=== PATIENT | female | born 1925 | race Caucasian/White ===

== ENCOUNTER 2016-06-06 10:52 | Inpatient (IN) | payer OTHER ==
[~2016-06-06] VITALS: Ht 162.6 cm; Wt 65.1 kg
[2016-06-06] MEDS ORDERED: LOVASTATIN20 M1 PO (10:59)
[2016-06-06] MEDS ORDERED: AMLODIPINE BESYL5 M1 PO (10:59)
[2016-06-06] MEDS ORDERED: LISINOPRIL10 M1 PO (10:59)
[2016-06-06] MEDS ORDERED: CELEBREX200 M1 PO (10:59)
[2016-06-06] MEDS ORDERED: FUROSEMIDE20 M1 PO (10:59)
[2016-06-06] MEDS ORDERED: VITAMIN B-121000 MC3 PO (11:00)
[2016-06-06] MEDS ORDERED: ASPIRIN EC81 M1 PO (11:00)
[2016-06-06] MEDS ORDERED: FAMOTIDINE20 M1 PO (11:00)
[2016-06-06] MEDS ORDERED: FERROUS SULFAT325 M3 PO (11:00)
[2016-06-06] MEDS ORDERED: FISH OIL 1,0001 EACH PO (11:01)
[2016-06-06] MEDS ORDERED: OSTEO BI-FLEX1 EACH PO (11:01)
--- NOTE | 2016-06-06 11:01 | ED SYNCOPE COMPLAINT ---
History of Present Illness General Chief Complaint: Syncope and Near-Syncope Stated Complaint: BIBA FOR SYNOPE EPISODE Source: patient, EMS Exam Limitations: no limitations Vital Signs & Intake/Output Vital Signs & Intake/Output Vital Signs Date Time Temp Pulse Resp B/P Pulse O2 O2 Flow FiO2 Ox Delivery Rate 06/07 1039 98.7 64 18 84/50 06/07 0936 98.7 64 18 84/50 95 Room Air 06/07 0313 94/50 06/06 2333 97.7 78 18 80/40 98 Room Air 06/06 2134 Room Air 06/06 2128 76 80/40 06/06 1946 95 Room Air 06/06 1849 98.6 59 16 104/48 95 Room Air 06/06 1629 98.6 72 18 110/57 100 Room Air 06/06 1556 92/40 06/06 1552 96.8 66 18 92/54 99 Room Air 06/06 1444 96.9 81 16 106/57 99 Room Air ED Intake and Output 06/07 0000 06/06 1200 Intake Total 910 Output Total 400 Balance 510 Intake, IV 310 Intake, Oral 600 Output, Urine 400 Patient 142 lb 142 lb Weight Allergies Coded Allergies: NO KNOWN ALLERGIES (01/06/11) Reconcile Medications Acetaminophen (Tylenol Extra Strength) 500 MG TABLET 1 TAB PO TID PRN PAIN ( Reported) Amlodipine Besylate 5 MG TABLET 1 TAB PO DAILY HEART (Reported) Aspirin (Ecotrin*) 81 MG TABLET.DR 1 TAB PO DAILY HEART HEALTH (Reported) Calcium Carb/Vitamin D3/Vit K1 (Viactiv Soft Chew Tablet) 500 MG CALCIUM-500 UNIT-40 MCG TAB.CHEW 1 TAB PO DAILY SUPPLEMENT (Reported) Celecoxib (Celebrex) 200 MG CAPSULE 1 CAP PO DAILY PAIN (Reported) Cyanocobalamin (Vitamin B-12) 1,000 MCG TABLET 1 TAB PO DAILY SUPPLEMENT ( Reported) Famotidine 20 MG TABLET 1 TAB PO DAILY GI (Reported) Ferrous Sulfate 325 MG (65 MG IRON) TABLET 1 TAB PO DAILY SUPPLEMENT ( Reported) Furosemide 20 MG TABLET 1 TAB PO DAILY WATER PILL (Reported) Glucosamine HCl/Chondr Caldera A Na (Osteo Bi-Flex Caplet) 250 MG-200 MG TABLET 1 TAB PO DAILY SUPPLEMENT (Reported) Lisinopril 10 MG TABLET 1 TAB PO DAILY HEART (Reported) Lovastatin 20 MG TABLET 1 TAB PO DAILY CHOLESTEROL (Reported) [place]-3 Fatty Acids/Fish Oil (Fish Oil 1,000 MG Capsule) 340 MG-1,000 MG CAPSULE 1 CAP PO DAILY SUPPLEMENT (Reported) Triage Nurses Notes Reviewed? yes Timing: single episode today Precipitating Factors: WHILE SEATED ON TOILET Episode Description: SEE HPI Loss of Consciousness: brief (seconds) Associated Symptoms: weakness, NAUSEA HPI: This is an 89-year-old female with history of hypertension, high cholesterol who presents by EMS from home for chief complaint of syncopal episode. Patient states while having a bowel movement on the toilet she started to feel lightheaded and dizzy like she was going to pass out. She activated her [employer]. Then she became nauseous and was getting up to get her waste basket when she passed out. Patient states that she went to her knees she did not hit her head. EMS states that she was outside the house when they got there. Blood sugar was within normal limits. Denies any chest pain or shortness of breath. Denies any lightheadedness or dizziness at this time. History of syncope previously. 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 No known history of a murmur. Past History Travel History Traveled to [place] past 21 day No Medical History Any Pertinent Medical History? see below for history Cardiovascular: hypertension, hyperlipidemia Surgical History Surgical History: non-contributory Psychosocial History What is your primary language Niuean Tobacco Use: Never used ETOH Use: denies use Family History Hx Contributory? No Review of Systems Review of Systems Constitutional: Denies: chills, fever. EENTM: Reports: no symptoms. Respiratory: Denies: cough, short of breath, sputum production. Cardiovascular: Reports: syncope. Denies: chest pain, palpitations. GI: Denies: abdominal pain. Genitourinary: Denies: discharge, dysuria. Musculoskeletal: Reports: no symptoms. Skin: Reports: no symptoms. Neurological/Psychological: Denies: anxiety, ataxia. All Other Systems: Reviewed and Negative Physical Exam Physical Exam General Appearance: well developed/nourished, alert, awake, anxious, mild distress Head: atraumatic, normal appearance Eyes: Bilateral: normal appearance, PERRL, EOMI. Ears, Nose, Throat: normal pharynx, normal ENT inspection, hearing grossly normal Neck: normal inspection, supple, full range of motion, carotid bruit Respiratory: normal breath sounds, chest non-tender, no respiratory distress Cardiovascular: regular rate/rhythm, murmur (SYSTOLIC EJECTION MURMUR 3/6) Gastrointestinal: normal bowel sounds, soft, non-tender Extremities: normal inspection, normal capillary refill, normal range of motion, no edema Psychiatric: awake, alert, oriented x 3 Cranial Nerves: normal hearing, normal speech, PERRL Motor/Sensory: no motor/sensory deficits Skin: intact, normal color, warm/dry Core Measures ACS in differential dx? Yes CVA/TIA Diagnosis: No Severe Sepsis Present: No Septic Shock Present: No Progress Differential Diagnosis: AMI, aortic dissection, aortic valve, orthostatic syncope, other valvular disease, pulmonary embolus, sick sinus syndrome, TIA/CVA , AORTIC STENOSIS Plan of Care: Orders Procedure Date/time Status BASIC ELECTROLYTES PLUS BUN&CR 06/08 0500 Active BASIC ELECTROLYTES PLUS BUN&CR 06/07 1800 Active CBC WITHOUT DIFFERENTIAL 06/07 0600 Complete BASIC ELECTROLYTES PLUS BUN&CR 06/07 0600 Complete Evaluate Swallowing 06/07 UNK Complete RT: Evaluation 06/06 2134 Active Lab Add-on Test 06/06 2131 Active MISTAKE 06/06 2047 Active TROPONIN LEVEL 06/06 1999 Complete POTASSIUM-PLASMA 06/06 1999 Complete EKG 06/06 1999 Active Pathway - chart 06/06 1949 Active Teach/Educate 06/06 194 Active Nutritional Intake, Monitor 06/06 194 Active Isolation 06/06 194 Active Patient Care Conference 06/06 194 Active Activity/Ambulation 06/06 194 Active BASIC ELECTROLYTES PLUS BUN&CR 06/06 1600 Complete Code Status 06/06 1426 Active TRC EVALUATION (GEN) 06/06 1338 Complete OXYGEN SETUP (GEN) 06/06 1338 Active Pathway - chart 06/06 1338 Active House Staff 06/06 1338 Active Patient Data 06/06 1338 Active Code Status 06/06 1338 Complete MISTAKE 06/06 1333 Complete Add-on Test (ER Only) 06/06 1332 Active URINE LYTES, SPOT 06/06 1332 Complete URINALYSIS 06/06 1332 Complete Intake & Output 06/06 1256 Active THYROID STIMULATING HORMONE 06/06 1148 Complete PHOSPHORUS 06/06 1148 Complete MAGNESIUM 06/06 1148 Complete FREE T4 06/06 1148 Complete CORTISOL AM 06/06 1148 Complete SWALLOW EVALUATION 06/06 UNK Active THERAPIST ORDERS 06/06 UNK Complete DC OXYGEN 06/06 UNK Complete VTE Mechanical Prophylaxis 06/06 UNK Active Vital Signs 06/06 UNK Active MISTAKE 06/06 UNK Complete Telemetry/Wholesale Agronomist 06/06 UNK Active Intake & Output 06/06 UNK Active Hemoccult 06/06 UNK Active ECHOCARDIOGRAM 06/06 UNK Active Current Medications Sig/Nany Start time Last Medication Dose Stop Time Status Admin Sodium Chloride 1,000 ML Q13H 06/08 0345 AC (Normal Saline 0.9%) Amlodipine Besylate 5 MG DAILY 06/07 1000 AC (Norvasc) Acetaminophen 650 MG QAM PRN 06/06 2000 AC (Tylenol) Laboratory Tests 06/07/16 0705: Anion Gap 11, Estimated GFR 30 L, BUN/Creatinine Ratio 36.3 H, CBC w Diff NO MAN DIFF REQ, RBC 3.31 L, MCV 88.3, MCH 29.0, RDW 16.4 H, MPV 7.2 L, Gran % 67.6, Lymphocytes % 24.8, Monocytes % 5.4, Eosinophils % 2.4, Basophils % 0.3, Absolute Granulocytes 5.4, Absolute Lymphocytes 2.0, Absolute Monocytes 0.4, Absolute Eosinophils 0.2, Absolute Basophils 0, PUBS MCHC 32.8 L 06/06/16 2035: Plasma Potassium 4.6 H, Troponin I < 0.01 06/06/16 1643: Anion Gap 12, Estimated GFR 26 L, BUN/Creatinine Ratio 42.8 H 06/06/16 1530: Urine Color YEL, Urine Clarity CLEAR, Urine pH 6.0, Ur Specific [place] 1.015, Urine Protein NEG, Urine Ketones NEG, Urine Nitrite NEG, Urine Bilirubin NEG, Urine Urobilinogen 0.2, Ur Leukocyte Esterase NEG, Ur Microscopic EXAM NOT REQUIRED, Urine Hemoglobin NEG, Urine Glucose NEG 06/06/16 1530: Ref Lab Test Result Pending, Ur Random Creatinine 38.6, Ur Random Sodium 103 H, Ur Random Potassium 26.2, Fraction Sodium Excret 3.8 H POTASSIUM ELEVATED, NO ACUTE EKG CHANGES. IV INSULIN, DEXTROSE, CALIUM, KAYEXELATE ORDERED. D/W DR ZHU, ADMITTED TO TELEMETRY. WILL RECHECK POTASSIUM AT 4 PM. (SENTHIL SWANSON,SANDHYA) Diagnostic Imaging: Viewed by Me: Radiology Read. Discussed w/RAD: Radiology Read. CXR Impression: PATIENT: ELVIS SANTOS PRESENT AGE: 89 PATIENT ACCOUNT NO: [id number] : [birth year] LOCATION: [facility] ORDERING PHYSICIAN: SANDHYA NDIAYE MD SERVICE DATE: 06/06/16 EXAM TYPE: RAD - XRY-PORTABLE CHEST XRAY EXAMINATION: XR PORTABLE CHEST CLINICAL INFORMATION: Syncope. COMPARISON: None. TECHNIQUE: Portable view of the chest was obtained. FINDINGS: Lungs are symmetrically hypoexpanded and without edema or focal consolidation. There is no pleural effusion or pneumothorax. The cardiac silhouette is normal in size. There is atherosclerotic calcification of the thoracic aorta. A small opacity projecting over the right lateral lung base could represent minimal atelectasis or calcification within the anterior right fifth rib. Bones appear diffusely osteoporotic. 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 The left humeral head abuts the acromion, indicative of chronic massive rotator cuff tear at the left shoulder. IMPRESSION: No acute findings within the chest. No evidence of cardiomegaly or pulmonary edema. DICTATED BY: RACHEL STARK MD DATE/TIME DICTATED:06/06/161136 FURRIER DESIGNER:CAR DATE/TIME TRANSCRIBED:06/06/161136 CONFIDENTIAL, DO NOT COPY WITHOUT APPROPRIATE AUTHORIZATION. <Electronically signed in Other Vendor System> SIGNED BY: RACHEL STARK MD 06/06/16 1144 Initial ED EKG: NSR Rhythm Strip: normal sinus rhythm Departure Departure Disposition: STILL A PATIENT Condition: Stable Clinical Impression Primary Impression: Syncope Secondary Impressions: EMILIE (acute kidney injury), Hyperkalemia Referrals: MARIA JUÁREZ CNM Departure Forms: Customer Survey General Discharge Information Admission Note Spoke With: CECI ZHU MD Documentation of Exam: Documentation of any treatments & extenuating circumstances including Concerns Regarding Discharge (functional status, medication knowledge or non-compliance, living conditions, etc.) that warrant an admission rather than observation: [ nuclear monitoring technician, treatment for hyperkalemia, recheck potassium, echocardiogram to rule out aortic stenosis, serial EKG and troponin, consider renal consultation] Critical Care Note Critical Care Note Critical Care Time: 30-74 min
[2016-06-06] MEDS ORDERED: VIACTIV SOFT C1 EACH PO (11:02)
[2016-06-06] MEDS ORDERED: TYLENOL EXTRA500 M2 PO (11:02)
--- NOTE | 2016-06-06 11:03 | NUR ---
LAVERNE FROM HOME, STATES SHE FELT DIZZY, HAD A SYNCOPAL EPISODE WHILE HAVING A BM ON TOILET, DENIES HITTING HEAD, STATES SHE LOWERED HERSELF TO THE GROUND. DENIES CHEST PAIN, SOB OR HEADACHE. EVALUATED BY DR. NDIAYE.
--- NOTE | 2016-06-06 11:44 | RADIOLOGY REPORT ---
EXAMINATION: XR PORTABLE CHEST CLINICAL INFORMATION: Syncope. COMPARISON: None. TECHNIQUE: Portable view of the chest was obtained. FINDINGS: Lungs are symmetrically hypoexpanded and without edema or focal consolidation. There is no pleural effusion or pneumothorax. The cardiac silhouette is normal in size. There is atherosclerotic calcification of the thoracic aorta. A small opacity projecting over the right lateral lung base could represent minimal atelectasis or calcification within the anterior right fifth rib. Bones appear diffusely osteoporotic. 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 The left humeral head abuts the acromion, indicative of chronic massive rotator cuff tear at the left shoulder. IMPRESSION: No acute findings within the chest. No evidence of cardiomegaly or pulmonary edema.
--- NOTE | 2016-06-06 11:49 | NUR ---
BLOOD DRAWN AND SENT TO LAB. LAV,SST,BLUE
[2016-06-06 11:52] LABS: ABSOLUTE BASOPHIL COUNT 0 /CUMM (0.0-0.2); ABSOLUTE EOSINOPHIL COUNT 0.1 /CUMM (0.0-0.7); ABSOLUTE GRANULOCYTE CT 9.4 /CUMM (1.4-6.5); ABSOLUTE LYMPH COUNT 0.9 /CUMM (1.2-3.4); ABSOLUTE MONOCYTE COUNT 0.5 /CUMM (0.10-0.60); BASOPHIL % 0 % (0.0-2.0); EOSINOPHIL % 1.1 % (0-5); GRANULOCYTE % 86.6 % (42.2-75.2); HEMATOCRIT 34.4 % (37-47); MEAN CORPUSCULAR HGB 29.2 PG (27.0-31.0); MEAN CORPUSCULAR HGB CONC 33.2 G/DL (33.0-37.0); MEAN CORPUSCULAR VOLUME 87.9 FL (81.0-99.0); MEAN PLATELET VOLUME 6.7 FL (7.4-10.4); PLATELET COUNT 301 /CUMM (130-400); RBC DISTRIBUTION WIDTH 16.6 % (11.5-14.5); RED BLOOD CELL CT 3.92 /CUMM (4.20-5.40); WHITE BLOOD CELL COUNT 10.9 /CUMM (4.8-10.8)
[2016-06-06 12:08] LABS: PT 10.5 SEC (9.4-12.5); PTT 28 SEC (25-37)
--- NOTE | 2016-06-06 12:46 | NUR ---
CRITICAL TEST RESULTS [id number] ELVIS SANTOS 89 F TESTS AND RESULTS: k 7.2 Results received and read back by: CHARU GIRON Results received date and time: 06/06/16 1246 The following provider was notified of the results, and read the results back: Thomas Notified date and time: 06/06/16 at 1246
--- NOTE | 2016-06-06 13:26 | History & Physical ---
YAMILKA RÍOS MD 06/06/16 1326: General Information and HPI Source of Information: patient, old records Exam Limitations: no limitations History of Present Illness: Patient is an 89-year-old female with a significant past medical history of hypertension, hyperlipidemia, presented with chief complaint of syncopal episode while she was having bowel movement. According to her, when she was going to bathroom in the morning she started feeling lightheaded and dizziness and passed out. She denies hitting her head. Than she activated her Lifeline. According to the EMS team her blood sugar was in the normal limits and she was outside her home. According to her daughter, she had diarrhea on April for which she was given Kaopectate and she improved. After that she started having decreased appetite. According to the patient, she was having difficulty in swallowing solid food, she feels that food is stuck in her chest and that is followed by nausea. She has no any difficulty in the fluid intake. She denies of any fever, vomiting, chest pain, abdomen pain, change in bowel habits, change in urinary habits, dysuria, pain, cough, cold. According to her doctor she had her physical examination on March 19 and had blood work up on March 24, 2016. She also had flu shot in February. According to daughter, her granddaughter is sick and visited her on Sunday. Pain in her left shoulder, especially when she leans forward. She is not able to overhead abduct her left shoulder.she denies of any trauma and has not visited any doctor for it. 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 It is not progressing and not aware of any cause related to it. She is using hearing aids but they are not much helpful. Recently, she has a new insurance probably she gonna get new hearing aids from it. She has past history of fall 2 years ago? cause and hurt her Knee. Personal history-she can do her daily activity without any help. She denies of smoking. She is using wine 1 pint occasionally. Her primary care is Dr. Pete Pearl ([phone]) Allergies/Medications Allergies: Coded Allergies: NO KNOWN ALLERGIES (01/06/11) Home Med list Acetaminophen (Tylenol Extra Strength) 500 MG TABLET 1 TAB PO TID PRN PAIN ( Reported) Amlodipine Besylate 5 MG TABLET 1 TAB PO DAILY HEART (Reported) Aspirin (Ecotrin*) 81 MG TABLET.DR 1 TAB PO DAILY HEART HEALTH (Reported) Calcium Carb/Vitamin D3/Vit K1 (Viactiv Soft Chew Tablet) 500 MG CALCIUM-500 UNIT-40 MCG TAB.CHEW 1 TAB PO DAILY SUPPLEMENT (Reported) Celecoxib (Celebrex) 200 MG CAPSULE 1 CAP PO DAILY PAIN (Reported) Cyanocobalamin (Vitamin B-12) 1,000 MCG TABLET 1 TAB PO DAILY SUPPLEMENT ( Reported) Famotidine 20 MG TABLET 1 TAB PO DAILY GI (Reported) Ferrous Sulfate 325 MG (65 MG IRON) TABLET 1 TAB PO DAILY SUPPLEMENT ( Reported) Furosemide 20 MG TABLET 1 TAB PO DAILY WATER PILL (Reported) Glucosamine HCl/Chondr Caldera A Na (Osteo Bi-Flex Caplet) 250 MG-200 MG TABLET 1 TAB PO DAILY SUPPLEMENT (Reported) Lisinopril 10 MG TABLET 1 TAB PO DAILY HEART (Reported) Lovastatin 20 MG TABLET 1 TAB PO DAILY CHOLESTEROL (Reported) [place]-3 Fatty Acids/Fish Oil (Fish Oil 1,000 MG Capsule) 340 MG-1,000 MG CAPSULE 1 CAP PO DAILY SUPPLEMENT (Reported) Past History Travel History Traveled to [place] past 21 day No Medical History Cardiovascular: hypertension, hyperlipidemia Musculoskeletal: osteoarthritis Surgical History Surgical History: cataract surgery Past Family/Social History Family History Relations & Conditions if any MOTHER Relation not specified for: FH: diabetes mellitus Psychosocial History ETOH Use: occasional use Review of Systems Review of Systems Constitutional: Reports: no symptoms. All Other Systems: Reviewed and Negative Comments Denies of blurry vision, chest pain, diarrhea, dysuria, abdominal pain, weakness in the body. Exam & Diagnostic Data Last 24 Hrs of Vital Signs/I&O Vital Signs Date Time Temp Pulse Resp B/P Pulse O2 O2 Flow FiO2 Ox Delivery Rate 06/06 1257 97.0 62 16 106/61 98 Room Air 06/06 1107 97.5 72 20 111/55 93 Room Air Intake & Output 06/06 1600 06/06 0800 06/06 0000 Intake Total 10 Output Total Balance 10 Intake, IV 10 Patient 64.41 kg Weight Physical Exam General Appearance Alert, Oriented X3, Cooperative, No Acute Distress Skin No Rashes, No Breakdown HEENT Atraumatic, PERRLA, EOMI Neck Supple, No JVD Cardiovascular Regular Rate, Normal S1, Normal S2, murmur present Lungs Clear to Auscultation, Normal Air Movement Abdomen Normal Bowel Sounds, Soft, No Tenderness Neurological Normal Speech, Strength at 5/5 X4 Ext, Normal Tone, presbyacusis Extremities No Clubbing, No Cyanosis, No Edema, Normal Pulses, fingers having osteoarthritis changes Vascular Normal Pulses, Pulses Symmetrical Assessment/Plan Assessment: Patient is an 89-year-old female with a significant past medical history of hypertension, hyperlipidemia, presbycusis, cataract status post surgery, arthritis, presented with chief complaint of syncopal episode while she was having bowel movement. Vital signs at the time of admission- BP-106/61 on sitting and 111/55 on lying Chest x-ray() -no any acute changes Pertinent labs -on 03/24/2016 -creatinine 1.52,K- 5.9, Problem list- Hyperkalemia EMILIE Hypertension Hyperlipidemia Osteoporosis Levoscoliosis Atrophic vaginitis Presbycusis Arthritis Assessment and plan - Patient was dizzy when she woke up in the morning and also when she want to stand up after going to the bathroom, she felt dizzy and had black in front of her eyes. She recovered in couple of seconds without any loss of memory or orientation. She was having decreased oral intake since last 2 weeks due to dysphagia for solids and also her fluid intake is very low. She was having orthostatic on the top of vasovagal. Here in the ED, on examination, she does not found to have orthostatic hypotension.On her blood work come she was found to have EMILIE. BUN/creatinine ratio >20(79/2).she was also having high pottassium of unknown region. EKG showing tall T waves in V2/V3. Hyperkalemia - We'll admit the patient in telemetry and monitor her EKG Injection to attempt Glucovance/Kayexalate is already given in the ED We will regularly follow her pottasium level twice a day till it become normal We will stop lisinopril/furosemide Syncope under evaluation CT scan shows no any acute abnormal Orthostatic vital showed no any orthostatic hypotension Will follow echocardiogram and cardiology recommendation EMILIE BUN/creatinine ratio >20(79/2) We will give normal saline -50 mL per hour Stick intake output charting Follow BUN/creatinine regularly Will stop lisinopril/furosemide/celecoxib Dysphagia Patient is having dysphagia for solids than liquids, differential can be esophageal cancer/esophagitis/esophageal constriction Will consider GI evaluation We will follow swallowing evaluation and if needed, then Barium swallow DVT prophylaxis-ALP S/apparent Diet-heart healthy diet CODE STATUS-DNR/DNI As Ranked By This Provider Problem List: 1. Hyperkalemia 2. EMILIE (acute kidney injury) 3. Syncope 4. Hyperlipidemia 5. Osteoporosis 6. Levoscoliosis Core Measures/Miscellaneous Acute Coronary Syndrome ACS Diagnosis: No Cerebrovascular Accident CVA/TIA Diagnosis: No Congestive Heart Failure CHF Diagnosis: No Venous Thromboembolism VTE Risk Factors: Age > 40 VTE Prophylaxis Ordered Inpt: Mechanical (ALPS/TEDS) No Mech VTE prophylaxis d/t: No contraindications No VTE Pharm Prophylaxis d/t: No contraindications VTE Diagnosis: No VTE Type: NONE VTE Confirmed by (Test): NONE Severe Sepsis Severe Sepsis Present: No Septic Shock Septic Shock Present: No Miscellaneous Documentation Attending Case Discussed With: CECI ZHU MD Primary Care Physician: PETE PEARL MD Patient sees these Specialists Primary care physician Level of Patient Care: Telemetry CLARISSA NOEL 06/06/16 1516: Resident Review Statement Resident Statement: examined this patient, discussed with video editing internship, agreed with video editing internship, discussed with family, reviewed EMR data (avail), reviewed images Other Findings: This is an 89-year-old lady, hard of hearing, with past medical history significant for hypertension, hyperlipidemia BIBA after an syncopal episode. Per patient, she was in her USOH until this morning. She was trying to use the restroom when she felt lightheaded, no loss of consciousness, no trauma to her head, her life her life alarm went off and she was brought to the hospital. The patient reports loss of by mouth intake recently because of her dysphagia. She has not been drinking enough water. Also reports nausea; did not vomit. The patient denies any headache, odynophagia, dizziness, shortness of breath, chest pain, abdominal pain, urinary symptoms. Other complaints: Worsening dysphagia mostly to solids for one week, chronic left shoulder pain and required multiple steroid injections in past. Upon presentation to the ED, she was found to have potassium level elevated to 7.2. She received insulin dextrose, kayexalate, IV fluids, calcium gluconate. Recheck labs pending. Vitals at the time of physical exam: Temperature 96.9, pulse rate 81, respiratory rate 16, blood pressure 106/57, oxygen saturation 99% on room air. Physical exam at the time of admission: NAD, AAO 3, hard of hearing. HEENT: Head normocephalic, atraumatic, PERRLA, EOMI, normal pharynx, normal funduscopy exam. Neck: Supple, no JVD, no carotid bruit. CVS: S1-S2 auscultated, systolic murmur noted. Lungs: CTA BL. No lower extremity edema. Neurology exam: Cranial nerves III-12 within normal limits, slow finger to nose. Reflexes normal. Sensation intact. Strength 5 over 54 extremities. Limited range of motion in the left shoulder. No skin lesion or bruise. The patient passed bedside swallow evaluation. Pertinent lab data on admission: Creatinine 2, BUN 79, GFR 23, glucose 107, calcium 10.6, LFT unremarkable, troponin negative. EKG sinus rhythm, rate 66, QTC 411, no significant ST-T wave changes. No tall T waves. Chest x-ray: No acute findings, no evidence of cardiomegaly or pulmonary edema. Bones appear diffusely osteoporotic. Chronic massive rotator cuff tear at the left shoulder. Problem list/plan: #1 syncope/presyncope. Neuro cardiogenic versus orthostatic hypotension versus cardiovascular versus neurology Reports recent history of decreased by mouth intake. desk monitor Head CT Will check orthostatics Echocardiogram Will rule out ACS with serial troponin and EKGs Will hold Vasodilators such as LIAT inhibitor/ARB (lisinopril) Consider neurology consult #2 Possible EMILIE: Patient presented with creatinine level of 2, GFR 23, BUN/creatinine>20, baseline creatinine(1.52 03/24/16) Most likely EMILIE in the setting of decreased by mouth intake. Received IV normal saline 500 ML 1 in the ED Will check FeNa, urine sodium, urine osmolarity, urine creatinine(of note patient is on Lasix as outpatient) Will Continue IV hydration Will avoid nephrotoxins Will hold home medications of celecoxib, furosemide, lisinopril Will recheck levels tomorrow #3 hyperkalemia: Potassium level 7.2 on admission, not on potassium supplements, reported nausea, no EKG changes. Given the low GFR, most likely secondary to EMILIE Received insulin glucose, calcium gluconate, Keyaxalate, IV fluids in the ED, repeat labs pending Will continue gentle IV hydration Low K level Recheck levels today #4 dysphagia Passed bedside swallow evaluation Formal swallow evaluation and possible barium swallow test #5 chronic rotator cuff tear at left shoulder: Patient not complaining of active pain at the moment. Will hold home medication of celecoxib given EMILIE. Pain management with Tylenol #6 DVT prophylaxis: Alps, AC after head CT #7 CODE STATUS: DNI/DNR AUDRA SWANSONCECI 06/06/16 1738: Attending MD Review Statement Attending Statement Attending MD Statement: examined this patient, discuss w/resident/PA/AUTO RESEARCH ENGINEER, agreed w/resident/PA/AUTO RESEARCH ENGINEER, discussed with family, reviewed EMR data (avail), discussed with nursing, reviewed images, amended to note Attending Assessment/Plan: The patient is an 89-year-old female with history of hypertension and hyperlipidemia who is admitted with syncope. The patient had diarrhea at the end of April for which she was given Kaopectate with subsequent improvement. After that she had decreased appetite. She developed difficulty swallowing foods and nausea. She has recently been having poor p.o. intake. This morning she felt lightheaded and dizzy, and passed out while using the bathroom. She activated her lifeline and was brought to the hospital for further management. Review of systems: No fever. No chills. No rash. No tremor. All other systems are reviewed and are noted to be negative. EKG tracing is independently reviewed, and reveals normal sinus rhythm at 66 Gen: The patient is in no acute distress HEENT: Normal nose, ears, and oropharynx. Pupils equal bilaterally. Conjunctiva normal. Neck: Supple with no JVD, no masses, and no thyromegaly Lungs: Clear to auscultation with normal respiratory effort Heart: RRR, S1, S2, no murmurs. No peripheral edema, 2+ pulses in the lower extremities bilaterally Abdomen: Soft, nontender, no masses. No hepatomegaly. No splenomegaly Extremities: No clubbing or cyanosis. Normal muscle strength in the upper and lower extremities. Skin: Normal skin turgor with no skin ulcers or lesions noted. Neuro: Cranial nerves intact. Sensation intact Psych: Alert and oriented 3 with appropriate affect Chest x-ray: Negative Head CT: Negative Laboratory Tests 06/06 06/06 06/06 1643 1530 1530 Chemistry Sodium (137 - 145 mmol/L) 141 Potassium (3.5 - 5.1 mmol/L) 6.6 *H Chloride (98 - 107 mmol/L) 113 H Carbon Dioxide (22 - 30 mmol/L) 15 L Anion Gap (5 - 16) 12 BUN (7 - 17 mg/dL) 77 H Creatinine (0.5 - 1.0 mg/dL) 1.8 H Estimated GFR (>60 ml/min) 26 L BUN/Creatinine Ratio (7 - 25 %) 42.8 H Miscellaneous Ref Lab Test Result Pending Urines Urine Color (YEL,AMB,STR) YEL Urine Clarity (CLEAR) CLEAR Urine pH (5.0 - 8.0) 6.0 Ur Specific [place] (1.001 - 1.035) 1.015 Urine Protein (NEG,<30 MG/DL) NEG Urine Ketones (NEG) NEG Urine Nitrite (NEG) NEG Urine Bilirubin (NEG) NEG Urine Urobilinogen (0.1 - 1.0 EU/dl) 0.2 Ur Leukocyte Esterase (NEG) NEG Ur Microscopic EXAM NOT REQUIRED Urine Hemoglobin (NEG) NEG Ur Random Creatinine (mg/dL) 38.6 Ur Random Sodium (30 - 90 mmol/L) 103 H Ur Random Potassium (mmol/L) 26.2 Fraction Sodium Excret (<1% %) 3.8 H Urine Glucose (N MG/DL) NEG 06/06 1148 Chemistry Sodium (137 - 145 mmol/L) 141 Potassium (3.5 - 5.1 mmol/L) 7.2 *H Chloride (98 - 107 mmol/L) 112 H Carbon Dioxide (22 - 30 mmol/L) 15 L Anion Gap (5 - 16) 14 BUN (7 - 17 mg/dL) 79 H Creatinine (0.5 - 1.0 mg/dL) 2.0 H Estimated GFR (>60 ml/min) 23 L BUN/Creatinine Ratio (7 - 25 %) 39.5 H Glucose (65 - 99 mg/dL) 107 H Calcium (8.4 - 10.2 mg/dL) 10.6 H Total Bilirubin (0.2 - 1.3 mg/dL) 0.6 AST (14 - 36 U/L) 24 ALT (9 - 52 U/L) 23 Alkaline Phosphatase (<127 U/L) 80 Troponin I (< 0.11 ng/ml) < 0.01 Total Protein (6.3 - 8.2 g/dL) 7.4 Albumin (3.5 - 5.0 g/dL) 4.3 Globulin (1.9 - 4.2 gm/dL) 3.1 Albumin/Globulin Ratio (1.1 - 2.2 %) 1.4 Coagulation PT (9.4 - 12.5 SEC) 10.5 INR (0.90 - 1.19) 1.00 APTT (25 - 37 SEC) 28 Hematology CBC w Diff MAN DIFF ORDERED WBC (4.8 - 10.8 /CUMM) 10.9 H RBC (4.20 - 5.40 /CUMM) 3.92 L Hgb (12.0 - 16.0 G/DL) 11.4 L Hct (37 - 47 %) 34.4 L MCV (81.0 - 99.0 FL) 87.9 MCH (27.0 - 31.0 PG) 29.2 RDW (11.5 - 14.5 %) 16.6 H Plt Count (130 - 400 /CUMM) 301 MPV (7.4 - 10.4 FL) 6.7 L Gran % (42.2 - 75.2 %) 86.6 H Lymphocytes % (20.5 - 51.1 %) 8.1 L Monocytes % (1.7 - 9.3 %) 4.2 Eosinophils % (0 - 5 %) 1.1 Basophils % (0.0 - 2.0 %) 0 L Absolute Granulocytes (1.4 - 6.5 /CUMM) 9.4 H Absolute Lymphocytes (1.2 - 3.4 /CUMM) 0.9 L Absolute Monocytes (0.10 - 0.60 /CUMM) 0.5 Absolute Eosinophils (0.0 - 0.7 /CUMM) 0.1 Absolute Basophils (0.0 - 0.2 /CUMM) 0 Platelet Estimate (ADEQUATE) VERIFIED BY SMEAR Anisocytosis 1+ Ovalocytes 1+ PUBS MCHC (33.0 - 37.0 G/DL) 33.2 assessment: * acute kidney injury, likely secondary to volume depletion * hyperkalemia * syncope, likely secondary to volume depletion and acute kidney injury plan: * Monitor on telemetry * Check orthostatics Q shift * IV fluid * Echocardiogram * Insulin, glucose, and calcium gluconate given * Kayexalate given
--- NOTE | 2016-06-06 13:48 | NUR ---
ALERT, DENIES CHEST PAIN OR DIZZINESS, HARD OF HEARING. NS INFUSING. HOUSE STAFF HERE TO EVALUATE.
--- NOTE | 2016-06-06 15:25 | NUR ---
THIS RN ASSUMED CARE OF PT PER ANGELES ZEPEDA. PT AMBUALTED TO THE COMMODE WITH ASSIST X1. URINE TRIO SENT TO LAB BY THIS RN. OUTPUT 400ML.
--- NOTE | 2016-06-06 15:58 | NUR ---
PTS MANUAL BP 92/40 CHECKED BY RN JEANNIE, AUTOMATIC CUFF 92/45. THIS RN WILL CONTINUE TO MONITOR, PT HAS NS FLUIDS INFUSING. PT CALM AND COOPERATIE, A&0X3 WITH DAUGHTER AT BEDSIDE. PT VSS WITH RR,
--- NOTE | 2016-06-06 15:59 | CT SCAN REPORT ---
EXAMINATION: CT HEAD WITHOUT CONTRAST CLINICAL INFORMATION: Syncopal episode evaluate for cerebrovascular accident lightheadedness COMPARISON: None. TECHNIQUE: Contiguous axial imaging was performed from the skull base to vertex without intravenous administration of contrast. DLP: 529 mGy-cm. FINDINGS: There is no evidence of acute intracranial hemorrhage or territorial infarction. No abnormal mass effect or midline shift is seen. [place] to white matter differentiation is well preserved. No extra-axial fluid collections are identified. The ventricles are normal in size. There is no abnormal attenuation within the brain parenchyma. The osseous structures and soft tissues are normal. The mastoid air cells and visualized portions of the paranasal sinuses are well aerated. IMPRESSION: No acute intracranial pathology.
--- NOTE | 2016-06-06 16:39 | NUR ---
MULTIPLE ATTEMPTS AT PHLEBOTOMY NURSE AWARE
--- NOTE | 2016-06-06 16:45 | NUR ---
THIS RN SENT SST 1600 REDRAW TROP
--- NOTE | 2016-06-06 17:10 | NUR ---
PT MEDICATED WITH 5MG LIPITOR AND 5000UNIT HEPARIN IN RIGHT ABD.
--- NOTE | 2016-06-06 17:12 | NUR ---
CRITICAL TEST RESULTS [id number] ELVIS SANTOS 89 F TESTS AND RESULTS: K 6.6 Results received and read back by: EUGENIE WATERS Results received date and time: 06/06/16 1712 The following provider was notified of the results, and read the results back: HOUSE STAFF INFORMED Notified date and time: 06/06/16 at 1712
--- NOTE | 2016-06-06 17:14 | NUR ---
HOUSE STAFF BERT PAGED TO INFORM OF POTASSIUM
--- NOTE | 2016-06-06 18:02 | NUR ---
PT IS GOING TO ROOM [id number]
--- NOTE | 2016-06-06 18:08 | NUR ---
REPORT GIVEN TO ANGELES DENNIS, TRANSPORT CALLED
[2016-06-06 18:49] VITALS: BP 104/48
--- NOTE | 2016-06-06 19:30 | NUR ---
ADMISSION NOTE; PT ADMITTED TO THE FLOOR. DAUGHTER AT THE BEDSIDE. VSS. NSR 70'S. REPEAT POTASSIUM 6.6. MADE AWARE. PT GIVEN SPS, AND ADDITIONAL 25GM IV DEXTROSE WITH 10 UNITS IV REGULAR INSULIN. FOR REPEAT LAB WORK AT 1999. NS INMFUSING AT 75 ML/HR.
[2016-06-06 21:28] VITALS: BP 80/40
[2016-06-06 23:33] VITALS: BP 80/40
[2016-06-07 03:13] VITALS: BP 94/50
--- NOTE | 2016-06-07 04:50 | Event Note ---
Event Note Event Note: Situation: * Asymptomatic hypotension Brief: * BP at 9:30 PM: 80/40. Patient was asymptomatic, was able to ambulate to the bathroom with assistance with no reports of dizziness * Bolus 250cc NS X2 * Increased maintenance rate from 75 to 100/hr. Follow up physical exam w/ no evidence of crackles A/R: * Recheck BP 94/50 * Spoke with the patients daughter earlier in the evening and she reported that at her last visit to her PCP her BP was "in the normal range" * Pt is likely hypovolemic secondary to poor PO intake prior to admission * Will continue NS @ 100/hr * Check orthostatics in the AM * TSH 7.210H, free T4 1.30. More likely an expected normal variant in elderly patient than overt hypothyroidism. Unlikely to be contributing to her symptoms. Consider post discharge f/u with sewage screen operator
--- NOTE | 2016-06-07 07:19 | PN- Housestaff ---
Subjective Follow-up For: Hyperkalemia EMILIE Complaints: no complaints Subjective: Patient is seen and examined at the bedside. She was not having any active complaints. She was feeling much better. She had one bowel movement in the morning. She was not feeling dizziness while moving her bowels. Denies of any dizziness, blacking in front of eyes, fall, chest pain, dysuria. Review of Systems Constitutional: Reports: no symptoms. Cardiovascular: Denies: chest pain. Respiratory: Denies: cough, short of breath. Gastrointestinal: Denies: abdominal pain, bloating, constipation. Genitourinary: Denies: discharge, dysuria, frequency. Musculoskeletal: Reports: joint pain. Skin: Denies: no symptoms. Neurological/Psychological: Denies: anxiety, dementia. Comments: Patient is feeling much better. Objective Last 24 Hrs of Vital Signs/I&O Vital Signs Date Time Temp Pulse Resp B/P Pulse O2 O2 Flow FiO2 Ox Delivery Rate 06/07 0313 94/50 06/06 2333 97.7 78 18 80/40 98 Room Air 06/06 2134 Room Air 06/06 2128 76 80/40 06/06 1946 95 Room Air 06/06 1849 98.6 59 16 104/48 95 Room Air 06/06 1629 98.6 72 18 110/57 100 Room Air 06/06 1556 92/40 06/06 1552 96.8 66 18 92/54 99 Room Air 06/06 1444 96.9 81 16 106/57 99 Room Air 06/06 1257 97.0 62 16 106/61 98 Room Air 06/06 1107 97.5 72 20 111/55 93 Room Air Intake & Output 06/07 1600 06/07 0800 06/07 0000 Intake Total 950 900 Output Total 600 Balance 350 900 Intake, IV 950 300 Intake, Oral 600 Output, Urine 600 Patient 64.41 kg Weight Physical Exam General Appearance: Alert, Oriented X3, Cooperative, No Acute Distress Skin: No Rashes, No Breakdown HEENT: Atraumatic, PERRLA, EOMI, Mucous Membr. moist/pink Neck: Supple, No JVD Cardiovascular: Regular Rate, Normal S1, Normal S2 Lungs: Clear to Auscultation, Normal Air Movement Abdomen: Soft, No Tenderness Neurological: Normal Gait, Normal Speech Extremities: No Clubbing, No Cyanosis, No Edema Vascular: Normal Pulses, Pulses Symmetrical Other Physical Findings: She is hard of hearing. She is responding to verbal command. She is oriented to time, place and person. On telemetry -there was couple of PVCs/VPCs and first- degree block overnight. Patient denies any episodes of palpitation. Assessment/Plan Assessment: Patient is an 89-year-old female with a significant past medical history of hypertension, hyperlipidemia, presbycusis, cataract status post surgery, arthritis, presented with chief complaint of syncopal episode while she was having bowel movement. Chest x-ray() -no any acute changes Pertinent labs -on 03/24/2016 -creatinine 1.52,K- 5.9, Problem list- Hyperkalemia EMILIE Hypertension Hyperlipidemia Osteoporosis Levoscoliosis Atrophic vaginitis Presbycusis Arthritis of left shoulder joint Vital signs -blood pressure -94/50, pulse 78, SPO2 98% on room air, temperature 97.7 Intake output -950/600 Pertinent labs -K -5.6, creatinine 1.6 Plan - * We will regularly monitor serum K, BUN/creatinine/EKG. * We will check BEP in evening at 6 p.m. * Today K -5.6, we'll continue same medication and follow in evening * We'll continue IV fluid normal saline - 75 mL per hour. * We will continue aspirin/atorvastatin/famotidine * I added the instruction for amlodipine -should not be given if SBP <100 and DBP <60. * Patient's blood pressure is towards the lower side 84/60. Advise to give IV to 250 mL bolus, and avoid antihypertensive * We will follow Dr. Mo recommendations * We placed the consult from Dr. Chavez/asphalt heater operator and follow his recommendation * CODE STATUS - DNR/DNI * DVT prophylaxis ALPS/heparin * Diet -Heart healthy diet Problem List: 1. Hyperkalemia 2. Hyperlipidemia 3. EMILIE (acute kidney injury) 4. Syncope 5. Osteoporosis 6. Levoscoliosis 7. Arthritis of left shoulder region Pain Ratin Pain Location: Left shoulder joint Pain Goal: Remain pain free Pain Plan: Tylenol Tomorrow's Labs & Rationales: BEP DVT/Prophylaxis: mechanical, pharmacological
[2016-06-07 08:27] LABS: ABSOLUTE BASOPHIL COUNT 0 /CUMM (0.0-0.2); ABSOLUTE EOSINOPHIL COUNT 0.2 /CUMM (0.0-0.7); ABSOLUTE GRANULOCYTE CT 5.4 /CUMM (1.4-6.5); ABSOLUTE MONOCYTE COUNT 0.4 /CUMM (0.10-0.60); EOSINOPHIL % 2.4 % (0-5); MEAN PLATELET VOLUME 7.2 FL (7.4-10.4); PLATELET COUNT 245 /CUMM (130-400)
--- NOTE | 2016-06-07 08:38 | PN- Student ---
Subjective Subjective: Patient is a 89 year old female with past medical history of hyperlipidemia, hypertension, and presbycusis who presented to the ED for dizziness and lightheadedness. Patient reports that she started feeling dizzy and lightheaded while making a bowel movement. She felt that she was going to pass out so she laid down on her bathroom floor and activated her lifeline button. At this point patient also began to feel nauseous. Patient waited on the floor for EMS to arrive. Once EMS arrived patient was able to ambulate but felt very week. Patient reports that she has been feeling a bit more tired than usual throughout the week and that she has not been able to eat very much because she feels that food is getting stuck in her throat. Patient also reports that she sometimes experiences lightheadedness and has has fainting spells in the past. Two weeks ago patient also had some diarrhea for two days for which her daughter gave her bismuth subsalicylate. After taking the medication her diarrhea stopped. PHM Patient has a past medical history of hypertension, hyperlipidemia, presbycusis, and left shoulder pain and loss of abduction overhead for which she recieved a cortisone shot. Patient also reports past episodes of dizziness and syncope. PSH None reported Medication Current Medications Sig/Nany Start time Last Medication Dose Route Stop Time Status Admin Acetaminophen 650 MG QAM PRN 06/06 2000 AC PO Amlodipine Besylate 5 MG DAILY 06/07 1000 AC PO Aspirin Buffered 81 MG DAILY 06/07 1000 AC PO Atorvastatin Calcium 5 MG 1700 06/06 1700 AC 06/06 PO 1710 Calcium Gluconate 0 .STK-MED ONE 06/06 1309 DC IV Calcium Gluconate 1 GM ONCE ONE 06/06 1300 DC 06/06 Sodium Chloride 100 ML IV 06/06 1359 1325 Dextrose 25 GM ONCE ONE 06/06 1915 DC 06/06 IV 06/06 191 1923 Dextrose 25 GM ONCE ONE 06/06 1300 DC 06/06 IV 06/06 1301 1324 Famotidine 20 MG DAILY 06/07 1000 AC PO Heparin Sodium 0 .STK-MED ONE 06/06 1702 DC (Porcine) .ROUTE Heparin Sodium 5,000 UNIT Q8 06/06 1609 AC 06/07 (Porcine) IA 0552 Insulin Human Regular 0 ONCE ONE 06/06 1914 DC IV 01/17 1916 Insulin Human Regular 10 UNITS ONCE ONE 06/06 1915 DC 06/06 IV 06/06 191 1923 Insulin Human Regular 10 UNITS ONCE ONE 06/06 1300 DC 06/06 IV 06/06 1301 1325 Sodium Chloride 250 ML BOLUS ONE 06/07 0030 DC 06/07 IV 06/07 0129 0030 Sodium Chloride 250 ML BOLUS ONE 06/06 2145 DC 06/06 IV 06/06 2244 2154 Sodium Chloride 1,000 ML Q13H 06/06 1445 AC 06/07 IV 0200 Sodium Chloride 500 ML BOLUS ONE 06/06 1300 DC 06/06 IV 06/06 1359 1325 Sodium Polystyrene 60 ML ONCE ONE 06/06 1915 DC 06/06 Sulfonate PO 06/06 1915 192 Sodium Polystyrene 0 .STK-MED ONE 06/06 1310 DC Sulfonate .ROUTE Sodium Polystyrene 60 ML ONCE ONE 06/06 1300 DC 06/06 Sulfonate PO 06/06 1301 1324 Allergies Patient reports seasonal allergies, as well as cat dander allergy. Family History Patient reports family history of alzheimer's in her father and sister. Social history Patient currently lives in a condo with her daughter and her dog. Patient reports walking 30 minutes daily when the weather is nice, but says she does not get as much exercise during the winter months. She reports drinking two cups of coffee a day, never smoking cigarettes, and occasional consumtion of alcohol, mostly red wine with dinner. The last time patient traveled was last year to [place] where her sister lives. Objective Objective: Patient was observed at bedside this morning, alert and oriented x3. This morning patient's temp was 98.7, pulse 64, RR 18, BP 84/50, pulse ox 95 on RA. Patient denies any nausea, dizziness, or weakness this morning. This morning patient's pottasium dropped back to 5.6 and BUN/Cr ratio dropped to 36.3. Vital Signs Date Time Temp Pulse Resp B/P Pulse O2 O2 Flow FiO2 Ox Delivery Rate 06/07 0936 98.7 64 18 84/50 95 Room Air 06/07 0313 94/50 06/06 2333 97.7 78 18 80/40 98 Room Air 06/06 2134 Room Air 06/06 2128 76 80/40 06/06 1946 95 Room Air 06/06 1849 98.6 59 16 104/48 95 Room Air 06/06 1629 98.6 72 18 110/57 100 Room Air 06/06 1556 92/40 06/06 1552 96.8 66 18 92/54 99 Room Air 06/06 1444 96.9 81 16 106/57 99 Room Air 06/06 1257 97.0 62 16 106/61 98 Room Air 06/06 1107 97.5 72 20 111/55 93 Room Air Intake & Output 06/07 1600 06/07 0800 06/07 0000 Intake Total 950 900 Output Total 600 Balance 350 900 Intake, IV 950 300 Intake, Oral 600 Output, Urine 600 Patient 142 lb Weight Laboratory Tests 06/07 06/06 06/06 0705 2035 1643 Chemistry Sodium (137 - 145 mmol/L) 143 141 Potassium (3.5 - 5.1 mmol/L) 5.6 H 6.6 *H Plasma Potassium (3.4 - 4.4 MMOL/L) 4.6 H Chloride (98 - 107 mmol/L) 115 H 113 H Carbon Dioxide (22 - 30 mmol/L) 17 L 15 L Anion Gap (5 - 16) 11 12 BUN (7 - 17 mg/dL) 58 H 77 H Creatinine (0.5 - 1.0 mg/dL) 1.6 H 1.8 H Estimated GFR (>60 ml/min) 30 L 26 L BUN/Creatinine Ratio (7 - 25 %) 36.3 H 42.8 H Troponin I (< 0.11 ng/ml) < 0.01 Hematology CBC w Diff NO MAN DIFF REQ WBC (4.8 - 10.8 /CUMM) 7.9 RBC (4.20 - 5.40 /CUMM) 3.31 L Hgb (12.0 - 16.0 G/DL) 9.6 L Hct (37 - 47 %) 29.2 L MCV (81.0 - 99.0 FL) 88.3 MCH (27.0 - 31.0 PG) 29.0 RDW (11.5 - 14.5 %) 16.4 H Plt Count (130 - 400 /CUMM) 245 MPV (7.4 - 10.4 FL) 7.2 L Gran % (42.2 - 75.2 %) 67.6 Lymphocytes % (20.5 - 51.1 %) 24.8 Monocytes % (1.7 - 9.3 %) 5.4 Eosinophils % (0 - 5 %) 2.4 Basophils % (0.0 - 2.0 %) 0.3 Absolute Granulocytes (1.4 - 6.5 /CUMM) 5.4 Absolute Lymphocytes (1.2 - 3.4 /CUMM) 2.0 Absolute Monocytes (0.10 - 0.60 /CUMM) 0.4 Absolute Eosinophils (0.0 - 0.7 /CUMM) 0.2 Absolute Basophils (0.0 - 0.2 /CUMM) 0 PUBS MCHC (33.0 - 37.0 G/DL) 32.8 L 06/06 06/06 1530 1530 Miscellaneous Ref Lab Test Result Pending Urines Urine Color (YEL,AMB,STR) YEL Urine Clarity (CLEAR) CLEAR Urine pH (5.0 - 8.0) 6.0 Ur Specific [place] (1.001 - 1.035) 1.015 Urine Protein (NEG,<30 MG/DL) NEG Urine Ketones (NEG) NEG Urine Nitrite (NEG) NEG Urine Bilirubin (NEG) NEG Urine Urobilinogen (0.1 - 1.0 EU/dl) 0.2 Ur Leukocyte Esterase (NEG) NEG Ur Microscopic EXAM NOT REQUIRED Urine Hemoglobin (NEG) NEG Ur Random Creatinine (mg/dL) 38.6 Ur Random Sodium (30 - 90 mmol/L) 103 H Ur Random Potassium (mmol/L) 26.2 Fraction Sodium Excret (<1% %) 3.8 H Urine Glucose (N MG/DL) NEG 06/06 1148 Chemistry Sodium (137 - 145 mmol/L) 141 Potassium (3.5 - 5.1 mmol/L) 7.2 *H Chloride (98 - 107 mmol/L) 112 H Carbon Dioxide (22 - 30 mmol/L) 15 L Anion Gap (5 - 16) 14 BUN (7 - 17 mg/dL) 79 H Creatinine (0.5 - 1.0 mg/dL) 2.0 H Estimated GFR (>60 ml/min) 23 L BUN/Creatinine Ratio (7 - 25 %) 39.5 H Glucose (65 - 99 mg/dL) 107 H Calcium (8.4 - 10.2 mg/dL) 10.6 H Phosphorus (2.5 - 4.5 mg/dL) 4.8 H Magnesium (1.6 - 2.3 mg/dL) 3.0 H Total Bilirubin (0.2 - 1.3 mg/dL) 0.6 AST (14 - 36 U/L) 24 ALT (9 - 52 U/L) 23 Alkaline Phosphatase (<127 U/L) 80 Troponin I (< 0.11 ng/ml) < 0.01 Total Protein (6.3 - 8.2 g/dL) 7.4 Albumin (3.5 - 5.0 g/dL) 4.3 Globulin (1.9 - 4.2 gm/dL) 3.1 Albumin/Globulin Ratio (1.1 - 2.2 %) 1.4 TSH (0.270 - 4.200 uIU/mL) 7.210 H Free T4 (0.85 - 1.93 ng/dL) 1.30 Cortisol AM Sample (4.46 - 22.7 ug/dL) 23.4 H Coagulation PT (9.4 - 12.5 SEC) 10.5 INR (0.90 - 1.19) 1.00 APTT (25 - 37 SEC) 28 Hematology CBC w Diff MAN DIFF ORDERED WBC (4.8 - 10.8 /CUMM) 10.9 H RBC (4.20 - 5.40 /CUMM) 3.92 L Hgb (12.0 - 16.0 G/DL) 11.4 L Hct (37 - 47 %) 34.4 L MCV (81.0 - 99.0 FL) 87.9 MCH (27.0 - 31.0 PG) 29.2 RDW (11.5 - 14.5 %) 16.6 H Plt Count (130 - 400 /CUMM) 301 MPV (7.4 - 10.4 FL) 6.7 L Gran % (42.2 - 75.2 %) 86.6 H Lymphocytes % (20.5 - 51.1 %) 8.1 L Monocytes % (1.7 - 9.3 %) 4.2 Eosinophils % (0 - 5 %) 1.1 Basophils % (0.0 - 2.0 %) 0 L Absolute Granulocytes (1.4 - 6.5 /CUMM) 9.4 H Absolute Lymphocytes (1.2 - 3.4 /CUMM) 0.9 L Absolute Monocytes (0.10 - 0.60 /CUMM) 0.5 Absolute Eosinophils (0.0 - 0.7 /CUMM) 0.1 Absolute Basophils (0.0 - 0.2 /CUMM) 0 Platelet Estimate (ADEQUATE) VERIFIED BY SMEAR Anisocytosis 1+ Ovalocytes 1+ PUBS MCHC (33.0 - 37.0 G/DL) 33.2
[2016-06-07 08:54] LABS: BASOPHIL % 0.3 % (0.0-2.0); GRANULOCYTE % 67.6 % (42.2-75.2); MEAN CORPUSCULAR HGB CONC 32.8 G/DL (33.0-37.0); MEAN CORPUSCULAR VOLUME 88.3 FL (81.0-99.0); RBC DISTRIBUTION WIDTH 16.4 % (11.5-14.5); RED BLOOD CELL CT 3.31 /CUMM (4.20-5.40); WHITE BLOOD CELL COUNT 7.9 /CUMM (4.8-10.8)
[2016-06-07 08:58] LABS: HEMATOCRIT 29.2 % (37-47)
[2016-06-07 09:36] VITALS: BP 84/50
--- NOTE | 2016-06-07 12:26 | Cons- Nephrology ---
General Information and HPI Consulting Request Date of Consult: 06/07/16 Requested By: CECI ZHU MD Reason for Consult: Hyperkalemia and possible acute kidney injury Source of Information: patient, old records, outpatient records on Epic Exam Limitations: no limitations History of Present Illness: This 89-year-old woman with a history of hypertension, but without previous history of known renal disease at least to her, was feeling dizzy yesterday after getting breakfast. She felt as though she needed to move her bowels, when she went to the bathroom, felt dizzy and decided lay down and summon help. She was brought to the emergency room and found to be hyperkalemic. She likewise has been somewhat hypotensive since she has been here. She denies any fevers or chills. She has occasional nocturia 2-3 times per night. She denies dysuria. There is no history of kidney stones or kidney infections. Her current medical regimen she has been taking for quite some time. We will addition, she reports having taken Celebrex in the past. The caveat on this is that Celexa Shook is listed as one of her medicines. She does report taking Aleve. In addition she was also on furosemide and lisinopril. There is no family history of end-stage renal disease. No one in the family is on dialysis. Allergies/Medications Allergies: Coded Allergies: NO KNOWN ALLERGIES (01/06/11) Home Med List: Acetaminophen (Tylenol Extra Strength) 500 MG TABLET 1 TAB PO TID PRN PAIN ( Reported) Amlodipine Besylate 5 MG TABLET 1 TAB PO DAILY HEART (Reported) Aspirin (Ecotrin*) 81 MG TABLET.DR 1 TAB PO DAILY HEART HEALTH (Reported) Calcium Carb/Vitamin D3/Vit K1 (Viactiv Soft Chew Tablet) 500 MG CALCIUM-500 UNIT-40 MCG TAB.CHEW 1 TAB PO DAILY SUPPLEMENT (Reported) Celecoxib (Celebrex) 200 MG CAPSULE 1 CAP PO DAILY PAIN (Reported) Cyanocobalamin (Vitamin B-12) 1,000 MCG TABLET 1 TAB PO DAILY SUPPLEMENT ( Reported) Famotidine 20 MG TABLET 1 TAB PO DAILY GI (Reported) Ferrous Sulfate 325 MG (65 MG IRON) TABLET 1 TAB PO DAILY SUPPLEMENT ( Reported) Furosemide 20 MG TABLET 1 TAB PO DAILY WATER PILL (Reported) Glucosamine HCl/Chondr Caldera A Na (Osteo Bi-Flex Caplet) 250 MG-200 MG TABLET 1 TAB PO DAILY SUPPLEMENT (Reported) Lisinopril 10 MG TABLET 1 TAB PO DAILY HEART (Reported) Lovastatin 20 MG TABLET 1 TAB PO DAILY CHOLESTEROL (Reported) Preston-3 Fatty Acids/Fish Oil (Fish Oil 1,000 MG Capsule) 340 MG-1,000 MG CAPSULE 1 CAP PO DAILY SUPPLEMENT (Reported) Review of Systems Review of Systems Constitutional: Reports: no symptoms. EENTM: Reports: hearing changes. Denies: blurred vision, double vision, eye pain, nasal congestion, throat pain. Cardiovascular: Denies: chest pain, edema, orthopena, palpitations. Respiratory: Denies: cough, hemoptysis, orthopnea, short of breath, sputum production. GI: Denies: bloating, constipation, diarrhea, distention, melena, nausea, bloody stool. Genitourinary: Denies: dysuria, frequency, hematuria, hesitation, nocturia. Musculoskeletal: Denies: back pain, gout, joint pain, joint swelling. Skin: Denies: jaundice, lesions, lymphangitis, moles, rash. Neurological/Psychological: Reports: no symptoms, weakness. Denies: confusion, depressed, dementia, tonic- clonic seizures. Hematologic/Endocrine: Denies: bruising, bleeding, polyuria, polydipsia. 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 Home Smoking Status: Never Smoked ETOH Use: occasional use Exam & Diagnostic Data Vital Signs and I&O Vital Signs Date Time Temp Pulse Resp B/P Pulse O2 O2 Flow FiO2 Ox Delivery Rate 06/07 1039 98.7 64 18 84/50 06/07 0936 98.7 64 18 84/50 95 Room Air 06/07 0313 94/50 06/06 2333 97.7 78 18 80/40 98 Room Air 06/06 2134 Room Air 06/06 2128 76 80/40 06/06 1946 95 Room Air 06/06 1849 98.6 59 16 104/48 95 Room Air 06/06 1629 98.6 72 18 110/57 100 Room Air 06/06 1556 92/40 06/06 1552 96.8 66 18 92/54 99 Room Air 06/06 1444 96.9 81 16 106/57 99 Room Air 06/06 1257 97.0 62 16 106/61 98 Room Air Intake & Output 06/07 1600 06/07 0400 06/06 1600 06/06 0400 06/05 1600 06/05 0400 Intake Total 950 900 10 Output Total 600 400 Balance 350 900 -390 Intake, IV 950 300 10 Intake, Oral 600 Output, Urine 600 400 Patient 142 lb 142 lb Weight Physical Exam General Appearance: well developed/nourished, no apparent distress, alert, awake Head: atraumatic, normal appearance, active bleeding Eyes: Bilateral: normal appearance, PERRL, EOMI. Ears, Nose, Throat: normal ENT inspection, hearing decreased Neck: normal inspection, supple, trachea mid line Respiratory: normal breath sounds, chest non-tender, lungs clear Cardiovascular: regular rate/rhythm, edema, gallop, JVD, no abdominal bruits Gastrointestinal: normal bowel sounds, soft, non-tender, no organomegaly Back: normal inspection, normal range of motion Extremities: normal inspection, normal capillary refill, normal range of motion, no edema Neurologic/Psych: no motor/sensory deficits, awake, alert, oriented x 3, aside from hearing loss, she has no gross neurologic deficit Skin: intact, normal color, warm/dry Lymphatic: no anterior cervical latosha Results Pertinent Lab Results: Laboratory Tests 06/07 06/06 06/06 0705 2035 1643 Chemistry Sodium (137 - 145 mmol/L) 143 141 Potassium (3.5 - 5.1 mmol/L) 5.6 H 6.6 *H Plasma Potassium (3.4 - 4.4 MMOL/L) 4.6 H Chloride (98 - 107 mmol/L) 115 H 113 H Carbon Dioxide (22 - 30 mmol/L) 17 L 15 L Anion Gap (5 - 16) 11 12 BUN (7 - 17 mg/dL) 58 H 77 H Creatinine (0.5 - 1.0 mg/dL) 1.6 H 1.8 H Estimated GFR (>60 ml/min) 30 L 26 L BUN/Creatinine Ratio (7 - 25 %) 36.3 H 42.8 H Troponin I (< 0.11 ng/ml) < 0.01 Hematology CBC w Diff NO MAN DIFF REQ WBC (4.8 - 10.8 /CUMM) 7.9 RBC (4.20 - 5.40 /CUMM) 3.31 L Hgb (12.0 - 16.0 G/DL) 9.6 L Hct (37 - 47 %) 29.2 L MCV (81.0 - 99.0 FL) 88.3 MCH (27.0 - 31.0 PG) 29.0 RDW (11.5 - 14.5 %) 16.4 H Plt Count (130 - 400 /CUMM) 245 MPV (7.4 - 10.4 FL) 7.2 L Gran % (42.2 - 75.2 %) 67.6 Lymphocytes % (20.5 - 51.1 %) 24.8 Monocytes % (1.7 - 9.3 %) 5.4 Eosinophils % (0 - 5 %) 2.4 Basophils % (0.0 - 2.0 %) 0.3 Absolute Granulocytes (1.4 - 6.5 /CUMM) 5.4 Absolute Lymphocytes (1.2 - 3.4 /CUMM) 2.0 Absolute Monocytes (0.10 - 0.60 /CUMM) 0.4 Absolute Eosinophils (0.0 - 0.7 /CUMM) 0.2 Absolute Basophils (0.0 - 0.2 /CUMM) 0 PUBS MCHC (33.0 - 37.0 G/DL) 32.8 L 06/06 06/06 1530 1530 Miscellaneous Ref Lab Test Result Pending Urines Urine Color (YEL,AMB,STR) YEL Urine Clarity (CLEAR) CLEAR Urine pH (5.0 - 8.0) 6.0 Ur Specific [place] (1.001 - 1.035) 1.015 Urine Protein (NEG,<30 MG/DL) NEG Urine Ketones (NEG) NEG Urine Nitrite (NEG) NEG Urine Bilirubin (NEG) NEG Urine Urobilinogen (0.1 - 1.0 EU/dl) 0.2 Ur Leukocyte Esterase (NEG) NEG Ur Microscopic EXAM NOT REQUIRED Urine Hemoglobin (NEG) NEG Ur Random Creatinine (mg/dL) 38.6 Ur Random Sodium (30 - 90 mmol/L) 103 H Ur Random Potassium (mmol/L) 26.2 Fraction Sodium Excret (<1% %) 3.8 H Urine Glucose (N MG/DL) NEG 06/06 1148 Chemistry Sodium (137 - 145 mmol/L) 141 Potassium (3.5 - 5.1 mmol/L) 7.2 *H Chloride (98 - 107 mmol/L) 112 H Carbon Dioxide (22 - 30 mmol/L) 15 L Anion Gap (5 - 16) 14 BUN (7 - 17 mg/dL) 79 H Creatinine (0.5 - 1.0 mg/dL) 2.0 H Estimated GFR (>60 ml/min) 23 L BUN/Creatinine Ratio (7 - 25 %) 39.5 H Glucose (65 - 99 mg/dL) 107 H Calcium (8.4 - 10.2 mg/dL) 10.6 H Phosphorus (2.5 - 4.5 mg/dL) 4.8 H Magnesium (1.6 - 2.3 mg/dL) 3.0 H Total Bilirubin (0.2 - 1.3 mg/dL) 0.6 AST (14 - 36 U/L) 24 ALT (9 - 52 U/L) 23 Alkaline Phosphatase (<127 U/L) 80 Troponin I (< 0.11 ng/ml) < 0.01 Total Protein (6.3 - 8.2 g/dL) 7.4 Albumin (3.5 - 5.0 g/dL) 4.3 Globulin (1.9 - 4.2 gm/dL) 3.1 Albumin/Globulin Ratio (1.1 - 2.2 %) 1.4 TSH (0.270 - 4.200 uIU/mL) 7.210 H Free T4 (0.85 - 1.93 ng/dL) 1.30 Cortisol AM Sample (4.46 - 22.7 ug/dL) 23.4 H Coagulation PT (9.4 - 12.5 SEC) 10.5 INR (0.90 - 1.19) 1.00 APTT (25 - 37 SEC) 28 Hematology CBC w Diff MAN DIFF ORDERED WBC (4.8 - 10.8 /CUMM) 10.9 H RBC (4.20 - 5.40 /CUMM) 3.92 L Hgb (12.0 - 16.0 G/DL) 11.4 L Hct (37 - 47 %) 34.4 L MCV (81.0 - 99.0 FL) 87.9 MCH (27.0 - 31.0 PG) 29.2 RDW (11.5 - 14.5 %) 16.6 H Plt Count (130 - 400 /CUMM) 301 MPV (7.4 - 10.4 FL) 6.7 L Gran % (42.2 - 75.2 %) 86.6 H Lymphocytes % (20.5 - 51.1 %) 8.1 L Monocytes % (1.7 - 9.3 %) 4.2 Eosinophils % (0 - 5 %) 1.1 Basophils % (0.0 - 2.0 %) 0 L Absolute Granulocytes (1.4 - 6.5 /CUMM) 9.4 H Absolute Lymphocytes (1.2 - 3.4 /CUMM) 0.9 L Absolute Monocytes (0.10 - 0.60 /CUMM) 0.5 Absolute Eosinophils (0.0 - 0.7 /CUMM) 0.1 Absolute Basophils (0.0 - 0.2 /CUMM) 0 Platelet Estimate (ADEQUATE) VERIFIED BY SMEAR Anisocytosis 1+ Ovalocytes 1+ PUBS MCHC (33.0 - 37.0 G/DL) 33.2 Assessment/Plan Assessment/Recommendations Assessment: 1. Hyperkalemia. This seems to be a combination of lisinopril coupled with volume depletion possibly due to furosemide along with use of either Aleve or Celexicob. All of which can raise the potassium. I would favor holding the lisinopril and the furosemide for now. She needs to avoid Celebrex or Aleve. For that matter she needs to avoid all nonsteroidal anti-inflammatory drugs. The exception to this being standard dose once a day aspirin either the full 325 mg or 81 mg low dose aspirin does not affect kidney function. The once a day aspirin is safe to use even in those with advanced chronic kidney disease approaching a dialysis. 2. Hypertension 3. Acute kidney injury? Her baseline, in reviewing the outpatient record, would seem to be 1.5-1.7. This may be due to hypertensive nephrosclerosis or benign nephrosclerosis related to age. For completeness, one could argue for checking a serum immunoelectrophoresis to exclude the possibility of a paraproteinemia. Recommendations: 1. Hold the furosemide for now. 2. Stop the lisinopril for now 3. Strict intakes and outputs, daily weights 4. Nonsteroidal anti-inflammatory drugs need to be avoided. 5. I would check a serum immunoelectrophoresis for completeness. 6. May need to image the kidneys specifically, obtain an ultrasound of the kidneys to assess size and exclude obstruction.
--- NOTE | 2016-06-07 13:47 | Patient Discharge Instructions ---
Discharge Instructions General Discharge Information You were seen/treated for: hyperkalemia secondary to dehydration and lisinopril medication EMILIE on CKD Special Instructions: Pleaseavoid Celebrex or Aleve and all nonsteroidal anti-inflammatory drugs. We are stopping lisinopril. Please follow-up with Dr. BAJWA within a week of discharge for hyperkalemia/ anemia. Please follow-up with Dr. Mo within a week of discharge Diet Continue normal diet: No (low potassium diet) Activity Full Activity/No Limits: No (as tolerated) Acute Coronary Syndrome Inclusion Criteria At DC or during hospital stay patient has or had the following: ACS DIAGNOSIS No Discharge Core Measures Meds if any: Prescribed or Continued at Discharge Meds if any: NOT Prescribed or Continued at Discharge Congestive Heart Failure Inclusion Criteria At DC or during hospital stay patient has or had the following: CHF DIAGNOSIS No Discharge Core Measures Meds if any: Prescribed or Continued at Discharge Meds if any: NOT Prescribed or Continued at Discharge Cerebrovascular accident Inclusion Criteria At DC or during hospital stay patient has or had the following: CVA/TIA Diagnosis No Discharge Core Measures Meds if any: Prescribed or Continued at Discharge Meds if any: NOT Prescribed or Continued at Discharge Venous thromboembolism Inclusion Criteria VTE Diagnosis No VTE Type NONE VTE Confirmed by (Test) NONE Discharge Core Measures - Per Current guidelines, there needs to be overlap - treatment for the first 5 days of Warfarin therapy. - If discharged on Warfarin prior to 5 days of - overlap therapy, the patient will need to be - assessed for post discharge needs including - *Post discharge parental anticoagulation - *Warfarin and/or parental anticoagulation education - *Follow up date to check INR post discharge At least 5 days overlap therapy as Inpatient No Meds if any: Prescribed or Continued at Discharge Note: Overlap Therapy is Warfarin and Anticoagulant Meds if any: NOT Prescribed or Continued at Discharge
--- NOTE | 2016-06-07 13:53 | PN- Cardiology ---
Subjective Subjective: Clinically, the patient is doing somewhat better. No further lightheadedness. The patient has already ambulated to the bathroom however. Follow-up laboratories pending. Objective Vital Signs and I&Os Vital Signs Date Time Temp Pulse Resp B/P Pulse O2 O2 Flow FiO2 Ox Delivery Rate 06/07 1039 98.7 64 18 84/50 06/07 0936 98.7 64 18 84/50 95 Room Air 06/07 0313 94/50 06/06 2333 97.7 78 18 80/40 98 Room Air 06/06 2134 Room Air 06/06 2128 76 80/40 06/06 1946 95 Room Air 06/06 1849 98.6 59 16 104/48 95 Room Air 06/06 1629 98.6 72 18 110/57 100 Room Air 06/06 1556 92/40 06/06 1552 96.8 66 18 92/54 99 Room Air 06/06 1444 96.9 81 16 106/57 99 Room Air Intake & Output 06/07 1600 06/07 0800 06/07 0000 06/06 1600 06/06 0800 06/06 0000 Intake Total 950 900 10 Output Total 600 400 Balance 350 900 -390 Intake, IV 950 300 10 Intake, Oral 600 Output, Urine 600 400 Patient 142 lb 142 lb Weight Physical Exam: General Appearance: Alert, Oriented X3, Cooperative, No Acute Distress Skin: No Rashes, No Breakdown HEENT: Atraumatic, PERRLA, EOMI, Mucous Membr. moist/pink Neck: Supple, No JVD Cardiovascular: Regular Rate, Normal S1, Normal S2, 1/6 systolic murmur Lungs: Clear to Auscultation, Normal Air Movement Abdomen: Soft, No Tenderness Neurological: Normal Gait, Normal Speech Extremities: No Clubbing, No Cyanosis, No Edema Vascular: Normal Pulses, Pulses Symmetrical Current Medications: Current Medications Sig/Nany Start time Last Medication Dose Route Stop Time Status Admin Acetaminophen 650 MG QAM PRN 06/06 2000 AC PO Amlodipine Besylate 5 MG DAILY 06/07 1000 AC PO Aspirin Buffered 81 MG DAILY 06/07 1000 AC 06/07 PO 1039 Atorvastatin Calcium 5 MG 1700 06/06 1700 AC 06/06 PO 1710 Calcium Gluconate 1 GM ONCE ONE 06/06 1300 DC 06/06 Sodium Chloride 100 ML IV 06/06 1359 1325 Dextrose 25 GM ONCE ONE 06/06 1915 DC 06/06 IV 06/06 Famotidine 20 MG DAILY 06/07 1000 AC 06/07 PO 1039 Heparin Sodium 0 .STK-MED ONE 06/06 1702 DC (Porcine) .ROUTE Heparin Sodium 5,000 UNIT Q8 06/06 1609 AC 06/07 (Porcine) SC 0552 Insulin Human Regular 0 ONCE ONE 06/06 1914 DC IV 06/06 1915 Insulin Human Regular 10 UNITS ONCE ONE 06/06 191 DC 06/06 IV 06/06 1915 192 Sodium Chloride 1,000 ML Q13H 06/08 0345 AC IV Sodium Chloride 250 ML BOLUS ONE 06/07 1130 DC IV 06/07 1229 Sodium Chloride 250 ML BOLUS ONE 06/07 0030 DC 06/07 IV 06/07 0129 0030 Sodium Chloride 250 ML BOLUS ONE 06/06 2145 DC 06/06 IV 06/06 2244 2154 Sodium Chloride 1,000 ML Q13H 06/06 1445 DC 06/07 IV 0200 Sodium Chloride 500 ML BOLUS ONE 06/06 1300 DC 06/06 IV 06/06 1359 1325 Sodium Polystyrene 60 ML ONCE ONE 06/06 191 DC 06/06 Sulfonate PO 06/06 1915 192 Results Last 48 Hrs of Labs/Mics: Laboratory Tests 06/07/16 0705: Anion Gap 11, Estimated GFR 30 L, BUN/Creatinine Ratio 36.3 H, CBC w Diff NO MAN DIFF REQ, RBC 3.31 L, MCV 88.3, MCH 29.0, RDW 16.4 H, MPV 7.2 L, Gran % 67.6, Lymphocytes % 24.8, Monocytes % 5.4, Eosinophils % 2.4, Basophils % 0.3, Absolute Granulocytes 5.4, Absolute Lymphocytes 2.0, Absolute Monocytes 0.4, Absolute Eosinophils 0.2, Absolute Basophils 0, PUBS MCHC 32.8 L 06/06/16 2035: Plasma Potassium 4.6 H, Troponin I < 0.01 06/06/16 1643: Anion Gap 12, Estimated GFR 26 L, BUN/Creatinine Ratio 42.8 H 06/06/16 1530: Urine Color YEL, Urine Clarity CLEAR, Urine pH 6.0, Ur Specific [place] 1.015, Urine Protein NEG, Urine Ketones NEG, Urine Nitrite NEG, Urine Bilirubin NEG, Urine Urobilinogen 0.2, Ur Leukocyte Esterase NEG, Ur Microscopic EXAM NOT REQUIRED, Urine Hemoglobin NEG, Urine Glucose NEG 06/06/16 1530: Ref Lab Test Result Pending, Ur Random Creatinine 38.6, Ur Random Sodium 103 H, Ur Random Potassium 26.2, Fraction Sodium Excret 3.8 H 06/06/16 1148: Anion Gap 14, Estimated GFR 23 L, BUN/Creatinine Ratio 39.5 H, Glucose 107 H, Calcium 10.6 H, Phosphorus 4.8 H, Magnesium 3.0 H, Total Bilirubin 0.6, AST 24, ALT 23, Alkaline Phosphatase 80, Troponin I < 0.01, Total Protein 7.4, Albumin 4.3, Globulin 3.1, Albumin/Globulin Ratio 1.4, TSH 7.210 H, Free T4 1.30, Cortisol AM Sample 23.4 H, PT 10.5, INR 1.00, APTT 28, CBC w Diff MAN DIFF ORDERED, RBC 3.92 L, MCV 87.9, MCH 29.2, RDW 16.6 H, MPV 6.7 L, Gran % 86.6 H, Lymphocytes % 8.1 L, Monocytes % 4.2, Eosinophils % 1.1, Basophils % 0 L, Absolute Granulocytes 9.4 H, Absolute Lymphocytes 0.9 L, Absolute Monocytes 0.5, Absolute Eosinophils 0.1, Absolute Basophils 0, Platelet Estimate VERIFIED BY SMEAR, Anisocytosis 1+, Ovalocytes 1+, PUBS MCHC 33.2 Assessment/Plan Assessment/Plan Assessment: 1. Syncope/presyncope 2. Acute renal insufficiency 3. Hyperkalemia 4. Worsening anemia Recommendations: -Continue to monitor on telemetry. -Continue gentle hydration. -Followup labs in AM to reassess lytes and renal function -Note dropping H/H with hydration. Check stools for OB. Check iron studies, B12 , etc. -Continue to hold LIAT -Baseline Nephrology consult and renal ultrasound pending -Please ambulate the patient today with monitoring of BP, HR and sats. -Echocardiogam pending. Continue telemetry? Yes
[2016-06-07 16:00] VITALS: BP 98/52
[2016-06-07 16:03] VITALS: BP 118/70
--- NOTE | 2016-06-07 16:30 | ULTRASOUND REPORT ---
EXAMINATION: US RETROPERITONEAL COMPLETE (RENAL) CLINICAL INFORMATION: Hypokalemia. A K I. Dehydration.. COMPARISON: None. TECHNIQUE: Real-time imaging of the kidneys and bladder. Color Doppler exam used. FINDINGS: RIGHT KIDNEY: 8.8 cm (SAG x AP x TRV). The kidney is normal in size, contour, and echogenicity. Renal cortical thickness is normal. No calculi or focal parenchymal lesions. No hydronephrosis. LEFT KIDNEY: 8.8 cm (SAG x AP x TRV). The kidney is normal in size, contour, and echogenicity. Renal cortical thickness is normal. No calculi or focal parenchymal lesions. No hydronephrosis. BLADDER: Well-distended and normal. Bilateral ureteral jets are not demonstrated. Prevoid bladder volume is 129 mL. Postvoid bladder volume was not obtained. IMPRESSION: Normal ultrasound of the kidneys. Ureteral jets are not seen in bladder..
[2016-06-07 17:06] VITALS: BP 100/48
[2016-06-07 23:15] VITALS: BP 96/50
[2016-06-08] VITALS: BP 96/50
--- NOTE | 2016-06-08 07:16 | PN- Housestaff ---
Subjective Follow-up For: Hyperkalemia EMILIE Complaints: no complaints Subjective: Patient is seen and examined at the bedside. She was not having any active complaints.Denies of any dizziness, blacking in front of eyes, fall, chest pain, dysuria. Review of Systems Constitutional: Reports: no symptoms. Objective Last 24 Hrs of Vital Signs/I&O Vital Signs Date Time Temp Pulse Resp B/P Pulse O2 O2 Flow FiO2 Ox Delivery Rate 06/08 0859 110/50 06/08 0840 97.5 76 20 110/54 96 Room Air 06/08 0000 72 96/50 06/07 2315 98.6 74 20 96/50 96 06/07 1706 71 100/48 Intake & Output 06/08 1600 06/08 0800 06/08 0000 Intake Total 270 950 Output Total 450 Balance -180 950 Intake, IV 150 600 Intake, Oral 120 350 Number 0 Bowel Movements Output, Urine 450 Patient 65.091 kg Weight Physical Exam General Appearance: Alert, Oriented X3, Cooperative, No Acute Distress Skin: No Rashes, No Breakdown HEENT: Atraumatic, PERRLA, EOMI Neck: Supple, No JVD Cardiovascular: Regular Rate, Normal S1, Normal S2 Lungs: Clear to Auscultation, Normal Air Movement Abdomen: Normal Bowel Sounds, Soft, No Tenderness Neurological: Normal Gait, Normal Speech Extremities: No Clubbing, No Cyanosis, No Edema Vascular: Normal Pulses, Pulses Symmetrical Assessment/Plan Assessment: Patient is an 89-year-old female with a significant past medical history of hypertension, hyperlipidemia, presbycusis, cataract status post surgery, arthritis, presented with chief complaint of syncopal episode while she was having bowel movement. Chest x-ray() -no any acute changes Pertinent labs -on 03/24/2016 -creatinine 1.52,K- 5.9, Problem list- Hyperkalemia EMILIE Hypertension Hyperlipidemia Osteoporosis Levoscoliosis Atrophic vaginitis Presbycusis Arthritis of left shoulder joint Vital signs -blood pressure -110/50, pulse 76, SPO2 96% on room air, temperature 97.5 Intake output -1900/600 Pertinent labs -K -5.0, creatinine 1.4 Plan - * Discharge today * Discussed with Dr. Mo, advised to follow-up with her primary care provider within a week of discharge and had repeat CBC/creatinine/Potassium. * Advised to check stool for occult blood. I did but the rectum was empty, so did not get the sample. Discussed with Dr. Mo, advised that patient can follow-up with her PCP. * Tod today per day. She was 5 ay K -5.0. * We'll stop IV fluid/amlodipine/lisinopril/celecoxib. * We will continue aspirin/atorvastatin/famotidine * Discussed with Dr. Chavez, according to him, patient can be discharged with follow-up with the PCP. * We advised the patient to decrease the intake of juices and K containing diet * CODE STATUS - DNR/DNI * DVT prophylaxis ALPS/heparin * Diet -Heart healthy diet Problem List: 1. Arthritis of left shoulder region 2. Levoscoliosis 3. Osteoporosis 4. Hyperlipidemia 5. Hyperkalemia 6. EMILIE (acute kidney injury) Pain Ratin Pain Location: Left shoulder Pain Goal: Remain pain free Pain Plan: Avoid NSAIDs Tomorrow's Labs & Rationales: nothing DVT/Prophylaxis: mechanical, pharmacological
[2016-06-08 07:45] LABS: ABSOLUTE BASOPHIL COUNT 0 /CUMM (0.0-0.2); ABSOLUTE EOSINOPHIL COUNT 0.2 /CUMM (0.0-0.7); ABSOLUTE GRANULOCYTE CT 4.6 /CUMM (1.4-6.5); ABSOLUTE LYMPH COUNT 1.9 /CUMM (1.2-3.4); ABSOLUTE MONOCYTE COUNT 0.4 /CUMM (0.10-0.60); BASOPHIL % 0.2 % (0.0-2.0); EOSINOPHIL % 2.5 % (0-5); GRANULOCYTE % 64.7 % (42.2-75.2); HEMATOCRIT 26.6 % (37-47); MEAN CORPUSCULAR HGB 29.4 PG (27.0-31.0); MEAN CORPUSCULAR HGB CONC 33.1 G/DL (33.0-37.0); MEAN CORPUSCULAR VOLUME 88.8 FL (81.0-99.0); MEAN PLATELET VOLUME 7.3 FL (7.4-10.4); PLATELET COUNT 223 /CUMM (130-400); RBC DISTRIBUTION WIDTH 16.5 % (11.5-14.5); WHITE BLOOD CELL COUNT 7.1 /CUMM (4.8-10.8)
[2016-06-08 08:40] VITALS: BP 110/54
[2016-06-08 08:59] VITALS: BP 110/50
--- NOTE | 2016-06-08 09:46 | ECHOCARDIOGRAM REPORT ---
ELVIS SANTOS Age: 89 : 1925 Gender: F Exam Date: 06/07/2016 15:06 Exam Location: 1 [address] Ht (in): 64 Wt (lb): 142 BSA: 1.72 BP: 84 / 50 Ordering Physician: DANE NOEL, Referring Physician: Jr Mo MD Technologist: Payton Null [facility] Room Number: 177 Indications: STRUCTURAL HEART DISEASE Rhythm: Sinus Technical Quality: Good FINDINGS Left Ventricle Normal size left ventricle. Normal left ventricular wall thickness. Normal left ventricular ejection fraction visually estimated at >60 %. Normal left ventricular wall motion. Abnormal relaxation filling pattern of the left ventricle for age (stage 1 diastolic dysfunction). Right Ventricle Normal right ventricular size and function. Right Atrium Normal right atrial size. Left Atrium Normal left atrial size. Mitral Valve Moderate mitral annular calcification. Mild mitral regurgitation. Aortic Valve Diffuse thickening of the aortic valve cusps with reduced excursion. Mild aortic stenosis. No aortic regurgitation. Tricuspid Valve Tricuspid valve not well visualized, grossly normal. Mild tricuspid regurgitation. Right ventricular systolic pressure estimated to be elevated at 43 mmHg. Pulmonic Valve Pulmonic valve not well visualized, grossly normal. Mild pulmonic regurgitation. Pericardium No pericardial effusion. Great Vessels Normal size aortic root and proximal ascending aorta. CONCLUSIONS Normal size left ventricle. Normal left ventricular ejection fraction visually estimated at >60 Abnormal relaxation filling pattern of the left ventricle for age (stage 1 diastolic dysfunction). Moderate mitral annular calcification. Mild mitral regurgitation. Mild aortic stenosis. Diffuse thickening of the aortic valve cusps with reduced excursion. Mild tricuspid regurgitation. Right ventricular systolic pressure estimated to be elevated at 43 mmHg. Mild pulmonic regurgitation. Jr Mo M.D. (Electronically Signed) Final Date: 08 June 2016 09:45 MEASUREMENTS (Male / Female) Normal Values 2D ECHO LV Diastolic Diameter PLAX 4.0 cm 4.2 - 5.9 / 3.9 - 5.3 cm LV Systolic Diameter PLAX 2.5 cm 2.1 - 4.0 cm LV Fractional Shortening PLAX 37.5 % 25 - 46 % LV Ejection Fraction 2D Teich 68.1 % IVS Diastolic Thickness 0.9 cm LVPW Diastolic Thickness 1.0 cm LV Relative Wall Thickness 0.5 RV Internal Dim ED PLAX 1.8 cm 1.9 - 3.8 cm LVOT Diameter 1.8 cm Aortic Root Diameter 2.7 cm LA Systolic Diameter LX 3.6 cm 3.0 - 4.0 / 2.7 - 3.8 cm LA Volume 41.0 cm 18 - 58 / 22 - 52 cm Ascending Aorta Diameter 3.0 cm DOPPLER AV Peak Velocity 287.0 cm/s AV Peak Gradient 32.9 mmHg AV Mean Velocity 197.0 cm/s AV Mean Gradient 18.0 mmHg AV Velocity Time Integral 64.2 cm LVOT Peak Velocity 98.2 cm/s LVOT Peak Gradient 3.9 mmHg LVOT Mean Velocity 76.4 cm/s LVOT Mean Gradient 3.0 mmHg LVOT Velocity Time Integral 25.7 cm LVOT Stroke Volume 65.4 cm AV Area Cont Eq vti 1.0 cm AV Area Cont Eq pk 0.9 cm MV Peak Velocity 145.0 cm/s MV Peak Gradient 8.4 mmHg MV Mean Velocity 82.5 cm/s MV Mean Gradient 3.0 mmHg Mitral E Point Velocity 103.0 cm/s Mitral A Point Velocity 122.0 cm/s Mitral E to A Ratio 0.8 MV PHT Velocity 121.0 cm/s MV Deceleration [place] 497.0 cm/s MV Pressure Half Time 73.0 ms MV Area PHT 3.0 cm MV Deceleration Time 383.0 ms TR Peak Velocity 308.0 cm/s TR Peak Gradient 37.9 mmHg Right Atrial Pressure 5.0 mmHg Pulmonary Artery Systolic Pressu 42.9 mmHg Right Ventricular Systolic Press 42.9 mmHg PV Peak Velocity 114.0 cm/s PV Peak Gradient 5.2 mmHg PV Mean Velocity 79.0 cm/s PV Mean Gradient 3.0 mmHg PV Velocity Time Integral 23.4 cm LV E' Lateral Velocity 9.5 cm/s Mitral E to LV E' Lateral Ratio 10.9 LV E' Septal Velocity 7.1 cm/s Mitral E to LV E' Septal Ratio 14.5
--- NOTE | 2016-06-08 10:39 | PN- Cardiology ---
Subjective Subjective: The patient is sitting in a chair, and she reports that she is feeling well. No lightheadedness or dizziness. No chest pain. No palpitations. No diaphoresis. She is in sinus rhythm on telemetry. Objective Vital Signs and I&Os Vital Signs Date Time Temp Pulse Resp B/P Pulse O2 O2 Flow FiO2 Ox Delivery Rate 06/08 0859 110/50 06/08 0840 97.5 76 20 110/54 96 Room Air 06/08 0000 72 96/50 06/07 2315 98.6 74 20 96/50 96 06/07 1706 71 100/48 06/07 1603 97.6 66 18 118/70 95 06/07 1600 84 98/52 06/07 1039 98.7 64 18 84/50 Intake & Output 06/08 1600 06/08 0800 06/08 0000 06/07 1600 06/07 0800 06/07 0000 Intake Total 270 950 950 900 Output Total 450 600 Balance -180 950 350 900 Intake, IV 150 600 950 300 Intake, Oral 120 350 600 Number 0 Bowel Movements Output, Urine 450 600 Patient 144 lb 142 lb Weight Physical Exam: Gen: The patient is in no acute distress HEENT: Normal nose, ears, and oropharynx. Pupils equal bilaterally. Conjunctiva normal. Neck: Supple with no JVD, no masses, and no thyromegaly Lungs: Clear to auscultation with normal respiratory effort Heart: RRR, S1, S2, no murmurs. No peripheral edema, 2+ pulses in the lower extremities bilaterally Abdomen: Soft, nontender, no masses. No hepatomegaly. No splenomegaly Extremities: No clubbing or cyanosis. Normal muscle strength in the upper and lower extremities. Skin: Normal skin turgor with no skin ulcers or lesions noted. Neuro: Cranial nerves intact. Sensation intact Current Medications: Current Medications Sig/Nany Start time Last Medication Dose Route Stop Time Status Admin Acetaminophen 650 MG QAM PRN 06/06 2000 AC PO Amlodipine Besylate 5 MG DAILY 06/07 1000 AC PO Aspirin Buffered 81 MG DAILY 06/07 1000 AC 06/08 PO 0857 Atorvastatin Calcium 5 MG 1700 06/06 1700 AC 06/07 PO 1634 Famotidine 20 MG DAILY 06/07 1000 AC 06/08 PO 0858 Heparin Sodium 5,000 UNIT Q8 06/06 1609 AC 06/08 (Porcine) SC 0552 Sodium Chloride 1,000 ML Q13H 06/08 1400 DC IV Sodium Chloride 1,000 ML Q13H 06/08 0545 AC 06/08 IV 0552 Sodium Chloride 1,000 ML Q13H 06/08 0345 DC IV Sodium Chloride 250 ML BOLUS ONE 06/07 1130 DC 06/07 IV 06/07 1229 1200 Results Last 48 Hrs of Labs/Mics: Laboratory Tests 06/08/16 0610: Anion Gap 7, Estimated GFR 35 L, BUN/Creatinine Ratio 32.1 H, CBC w Diff NO MAN DIFF REQ, RBC 3.00 L, MCV 88.8, MCH 29.4, RDW 16.5 H, MPV 7.3 L, Gran % 64.7, Lymphocytes % 26.8, Monocytes % 5.8, Eosinophils % 2.5, Basophils % 0.2, Absolute Granulocytes 4.6, Absolute Lymphocytes 1.9, Absolute Monocytes 0.4, Absolute Eosinophils 0.2, Absolute Basophils 0, PUBS MCHC 33.1 06/07/16 1815: Anion Gap 10, Estimated GFR 33 L, BUN/Creatinine Ratio 35.3 H, Iron 115, TIBC 239 L, Ferritin 259.0, Vitamin B12 > 1000 H 06/07/16 0705: Anion Gap 11, Estimated GFR 30 L, BUN/Creatinine Ratio 36.3 H, CBC w Diff NO MAN DIFF REQ, RBC 3.31 L, MCV 88.3, MCH 29.0, RDW 16.4 H, MPV 7.2 L, Gran % 67.6, Lymphocytes % 24.8, Monocytes % 5.4, Eosinophils % 2.4, Basophils % 0.3, Absolute Granulocytes 5.4, Absolute Lymphocytes 2.0, Absolute Monocytes 0.4, Absolute Eosinophils 0.2, Absolute Basophils 0, PUBS MCHC 32.8 L 06/06/16 2035: Plasma Potassium 4.6 H, Troponin I < 0.01 06/06/16 1643: Anion Gap 12, Estimated GFR 26 L, BUN/Creatinine Ratio 42.8 H 06/06/16 1530: Urine Color YEL, Urine Clarity CLEAR, Urine pH 6.0, Ur Specific [place] 1.015, Urine Protein NEG, Urine Ketones NEG, Urine Nitrite NEG, Urine Bilirubin NEG, Urine Urobilinogen 0.2, Ur Leukocyte Esterase NEG, Ur Microscopic EXAM NOT REQUIRED, Urine Hemoglobin NEG, Urine Glucose NEG 06/06/16 1530: Ref Lab Test Result Pending, Ur Random Creatinine 38.6, Ur Random Sodium 103 H, Ur Random Potassium 26.2, Fraction Sodium Excret 3.8 H 06/06/16 1148: Anion Gap 14, Estimated GFR 23 L, BUN/Creatinine Ratio 39.5 H, Glucose 107 H, Calcium 10.6 H, Phosphorus 4.8 H, Magnesium 3.0 H, Total Bilirubin 0.6, AST 24, ALT 23, Alkaline Phosphatase 80, Troponin I < 0.01, Total Protein 7.4, Albumin 4.3, Globulin 3.1, Albumin/Globulin Ratio 1.4, TSH 7.210 H, Free T4 1.30, Cortisol AM Sample 23.4 H, PT 10.5, INR 1.00, APTT 28, CBC w Diff MAN DIFF ORDERED, RBC 3.92 L, MCV 87.9, MCH 29.2, RDW 16.6 H, MPV 6.7 L, Gran % 86.6 H, Lymphocytes % 8.1 L, Monocytes % 4.2, Eosinophils % 1.1, Basophils % 0 L, Absolute Granulocytes 9.4 H, Absolute Lymphocytes 0.9 L, Absolute Monocytes 0.5, Absolute Eosinophils 0.1, Absolute Basophils 0, Platelet Estimate VERIFIED BY SMEAR, Anisocytosis 1+, Ovalocytes 1+, PUBS MCHC 33.2 Recent Imaging Studies: Echocardiogram: Normal size left ventricle. Normal left ventricular ejection fraction visually estimated at >60 Abnormal relaxation filling pattern of the left ventricle for age (stage 1 diastolic dysfunction). Moderate mitral annular calcification. Mild mitral regurgitation. Mild aortic stenosis. Diffuse thickening of the aortic valve cusps with reduced excursion. Mild tricuspid regurgitation. Right ventricular systolic pressure estimated to be elevated at 43 mmHg. Mild pulmonic regurgitation. Renal ultrasound: Normal ultrasound of the kidneys. Ureteral jets are not seen in bladder.. Assessment/Plan Assessment/Plan assessment: * acute kidney injury, likely secondary to volume depletion, improved * hyperkalemia, improved * syncope, likely secondary to volume depletion and acute kidney injury * Anemia Plan: * Discontinue amlodipine, and do not restart unless blood pressure becomes elevated. * Keep off lisinopril and furosemide given renal insufficiency. * Stool guaiac. * Follow renal recommendations. * Discharge home today if guaiac negative, and cleared for discharge by nephrology. * Follow up with primary care physician for anemia as outpatient. * Follow up with me in one week after discharge. Continue telemetry? Yes
--- NOTE | 2016-06-08 11:36 | Discharge Summary ---
Visit Information Visit Dates Admission Date: 06/06/16 Discharge Date: 06/08/16 Hospital Course Course Attending Physician: CECI ZHU MD Primary Care Physician: BIANCA SWANSON,PETE Zaragoza Other Care Providers: Dr. Chavez Consulting Request: Consulting Specialty: Nephrology Hospital Course: Patient is an 89-year-old female with a significant past medical history of hypertension, hyperlipidemia, presented with chief complaint of syncopal episode while she was having bowel movement. Vital signs at the time of admission -BP-106/61 on sitting and 111/55 on lying,T 96.9, SD 81, RR16, SPO2 99% on RA. Pertinent labs on admission:BUN/ Cr -79/2, GFR-23, glucose -107, K -7.2 Ca-10.6, LFT unremarkable, troponin negative. In the emergency department patient was given IV calcium gluconate, dextrose plus insulin, Kayexalate. EKG was showing NSR. Later she was transferred to telemetry for cardiac monitoring.We stopped lisinopril/celecoxib /furosemide. We took nephrology consultation and follow the recommendation. We monitored the patient in the telemetry for any cardiac arrhythmias,gave gentle hydration, and followed lytes and renal function regularly. There was no any acute cardiac event during this hospital course. Although she drops her H/H with hydration. We tried to check stool for occult blood, but the sample was insufficient, so we advised patient to follow-up with her primary care provider within a week of discharge for both to reassess blood K level and H/H. She was also having low blood pressure, so we hold her amlodipine. We discharged the patient on 2016. Her K at the time of discharge was 5.0 and creatinine was 1.4.We advised her to follow-up with PCP and Dr. Zhu within a week of discharge. We also advised her to avoid K-containing food, NSAIDs,LIAT/ARB. Allergies: Coded Allergies: NO KNOWN ALLERGIES (01/06/11) Disposition Summary Disposition Principal Diagnosis: Hyperkalemia secondary to dehydration/lisinopril Acute on chronic kidney disease Anemia Additional Diagnosis: Hypertension Hyperlipidemia Osteoporosis Levoscoliosis Atrophic vaginitis Presbycusis Arthritis of left shoulder joint Discharge Disposition: home or self care Discharge Instructions General Discharge Information Code Status: Do Not Resucitate/Intubat Patient's Diet: Heart healthy, low Potassium diet Patient's Activity: As tolerated Follow-Up Instructions/Appts: Please follow-up with your PCP for anemia and hyperkalemia within a week of discharge Please follow-up with Dr. Zhu within a week of discharge Medications at Discharge Discharge Medications: Stop taking the following medications: Celecoxib (Celebrex) 200 MG CAPSULE ORAL DAILY Lisinopril (Lisinopril) 10 MG TABLET ORAL DAILY Qty = 90 Amlodipine Besylate (Amlodipine Besylate) 5 MG TABLET ORAL DAILY Qty = 90 Furosemide (Furosemide) 20 MG TABLET ORAL DAILY Qty = 90 Continue taking these medications: Lovastatin (Lovastatin) 20 MG TABLET 1 Tablet ORAL DAILY Qty = 90 Comments: Last Taken:06/07/16 Time:5PM Famotidine (Famotidine) 20 MG TABLET 1 Tablet ORAL DAILY Qty = 90 Comments: Last Taken:06/08/16 Time:1000 Aspirin (Ecotrin*) 81 MG TABLET.DR 1 Tablet ORAL DAILY Comments: Last Taken:06/08/16 Time:1000 Ferrous Sulfate (Ferrous Sulfate) 325 MG (65 MG IRON) TABLET 1 Tablet ORAL DAILY Comments: Last Taken:06/08/16 Time:1000 Cyanocobalamin (Vitamin B-12) 1,000 MCG TABLET 1 Tablet ORAL DAILY [place]-3 Fatty Acids/Fish Oil (Fish Oil 1,000 MG Capsule) 340 MG-1,000 MG CAPSULE 1 Capsule ORAL DAILY Glucosamine HCl/Chondr [place] A Na (Osteo Bi-Flex Caplet) 250 MG-200 MG TABLET 1 Tablet ORAL DAILY Calcium Carb/Vitamin D3/Vit K1 (Viactiv Soft Chew Tablet) 500 MG CALCIUM-500 UNIT-40 MCG TAB.CHEW 1 Tablet ORAL DAILY Acetaminophen (Tylenol Extra Strength) 500 MG TABLET 1 Tablet ORAL THREE TIMES DAILY as needed for PAIN Copies To: BIANCA SWANSON,PETE Zaragoza; CECI ZHU MD Attending MD Review Statement Documenting Attending: CECI ZHU MD
== END 2016-06-08 14:30 | DRG 641 ==
LOC: ENRESERVTM → ENRESERVDT → ERH 10:52 → 1NO 13:07 → ERHI 13:07 → ENPENDDIS 13:07 → 1NO 18:24
PROVIDERS: Dermatology; Emergency Medicine; Internal Medicine; ADMIT Internal Medicine Cardiovascular Disease
DX: E87.5 Hyperkalemia (principal); E86.1 Hypovolemia; N17.9 Acute kidney failure, unspecified; M41.80 Other forms of scoliosis, site unspecified; R13.10 Dysphagia, unspecified; M41.9 Scoliosis, unspecified; T39.395A Adverse effect of other nonsteroidal anti-inflammatory drugs [NSAID], initial encounter; I10 Essential (primary) hypertension; E78.5 Hyperlipidemia, unspecified; M81.0 Age-related osteoporosis without current pathological fracture; H91.10 Presbycusis, unspecified ear; Z66 Do not resuscitate; I12.9 Hypertensive chronic kidney disease with stage 1 through stage 4 chronic kidney disease, or unspecified chronic kidney disease; N18.9 Chronic kidney disease, unspecified
CPT/HCPCS: 1NP; 82570; 84133; 84156; 84300; 36415; 76775; 81003; 82436; 93005; 93010; 93306; 96361; 96372; 96374; 97001-GP; 99291; J0610; J1644; J1815; J7040